=== PATIENT | male | born 1940 | race Hispanic/Latino ===

== ENCOUNTER 2017-04-06 20:01 | Inpatient (IN) | payer MEDICARE ==
[2017-04-06 20:01] VITALS: BMI 20.9
[2017-04-06] MEDS: Albuterol-Ipratrop 3 mg / 0.5 (3 ml) UD IH SCH ×3 (20:30→21:30)
[2017-04-06] MEDS ORDERED: Albuterol-Ipratrop 3 mg / 0.5 (3 ml) UD ONE (20:35)
[2017-04-06 21:27] LABS: BASO # 0.01 K/mm3 (0.0-2.0); BASO % 0.1 % (0.0-3.0); GRAN # 12.86 (1.4-6.5); GRAN % 89.2 % (50.0-68.0); HEMOGLOBIN 14.8 g/dL (14.0-18.0); LYMPH # 0.8 (1.2-3.4); LYMPH % 5.8 % (22.0-35.0); MEAN CELL VOLUME 96.7 fl (80.0-105.0); MEAN CORPUSCULAR HEMOGLOBIN 34.6 pg (25.0-35.0); MEAN CORPUSCULAR HGB CONC 35.7 g/dl (31.0-37.0); MONO # 0.7 (0.1-0.6); MONO % 4.9 % (1.0-6.0); RBC 4.28 10^6/uL (3.5-6.1); RED CELL DISTRIBUTION WIDTH 13.2 % (11.5-14.5); WHITE BLOOD COUNT 14.4 10^3/ul (4.5-11.0)
--- NOTE | 2017-04-06 21:27 | ED PDOC ---
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 Patient reports associated shortness of breath and wheezing. Patient reports no fever, chest pain, recent travel, or any other complaints. PMD: [facility] (Payton Garcia PA-C) Past Medical History - Provider Review Nursing Documentation Reviewed: Yes - Infectious Disease Hx of Infectious Diseases: None - Cardiac Hx Cardiac Disorders: Yes Hx Circulatory Problems: Yes Hx Hypertension: Yes Hx Peripheral Vascular Disease: Yes - Pulmonary Hx Respiratory Disorders: Yes - Neurological Hx Neurological Disorder: No - HEENT Hx HEENT Disorder: Yes Hx Deafness: Yes - Renal Hx Renal Disorder: No - Endocrine/Metabolic Hx Endocrine Disorders: No - Hematological/Oncological Hx Blood Disorders: No - Integumentary Hx Dermatological Disorder: Yes Hx Cellulitis: Yes (hx of) - Musculoskeletal/Rheumatological Hx Musculoskeletal Disorders: Yes Hx Falls: No (PT DENIES) Other/Comment: d/l amputee - Gastrointestinal Hx Gastrointestinal Disorders: Yes Other/Comment: colostomy - Genitourinary/Gynecological Hx Genitourinary Disorders: No - Psychiatric Hx Depression: No Hx Emotional Abuse: No Hx Physical Abuse: No Hx Substance Use: No - Surgical History Other/Comment: colostomy. b/l amputee due to "poor blood flow" as per pt - Anesthesia Hx Anesthesia: Yes Hx Anesthesia Reactions: No - Suicidal Assessment Feels Threatened In Home Enviroment: No Family/Social History - Physician Review Nursing Documentation Reviewed: Yes Family/Social History: Unknown Family HX Smoking Status: Current Some Days Smoker Hx Alcohol Use: Yes (6 PK COORS LIGHT DAILY) Hx Substance Use: No Hx Substance Use Treatment: No Allergies/Home Meds Allergies/Adverse Reactions: Allergies No Known Allergies Allergy (Verified 02/23/12 10:45) Home Medications: Home Meds Medication Instructions Recorded Confirmed Aspirin [Ecotrin] 81 mg PO DAILY 02/23/12 Atenolol 50 mg PO DAILY 02/23/12 Folic Acid 1 mg 02/23/12 02/23/12 Simvastatin 10 mg PO DAILY 02/23/12 02/23/12 Tramadol Hydrochloride [Tramadol] 50 mg PO 02/23/12 02/23/12 Review of Systems - Physician Review All systems were reviewed & negative as marked: Yes - Review of Systems Constitutional: Normal. absent: Fevers Eyes: Normal ENT: Normal Respiratory: SOB, Cough, Sputum, Wheezing Cardiovascular: Normal. absent: Chest Pain Gastrointestinal: Normal. absent: Abdominal Pain, Diarrhea, Nausea, Vomiting Genitourinary Male: Normal. absent: Dysuria, Frequency, Hematuria, Urinary Output Changes Musculoskeletal: Normal. absent: Back Pain, Neck Pain Skin: Normal. absent: Rash Neurological: Normal. absent: Headache, Dizziness Endocrine: Normal Hemo/Lymphatic: Normal Psychiatric: Normal Physical Exam Vital Signs Reviewed: Yes Temperature: Afebrile Blood Pressure: Normal Pulse: Regular Appearance: Positive for: Non-Toxic, Other (Speakign short sentences) Mental Status: Positive for: Alert and Oriented X 3 - Systems Exam Head: Present: Atraumatic, Normocephalic Pupils: Present: PERRL Extroacular Muscles: Present: EOMI Conjunctiva: Present: Normal Mouth: Present: Moist Mucous Membranes Neck: Present: Normal Range of Motion. No: Meningeal Signs, MIDLINE TENDERNESS , Paraspinal Tenderness Respiratory/Chest: Present: Respiratory Distress (Moderate respiratory distress) , Wheezes (Expiratory wheezes throughout), Other (Speaking short sentences) Abdomen: Present: Normal Bowel Sounds, Other (Colostomy). No: Tenderness, Distention, Peritoneal Signs Upper Extremity: Present: Normal Inspection. No: Cyanosis, Edema Lower Extremity: Present: NORMAL PULSES, Normal ROM, Other (Bilateral AKA). No : Edema Neurological: Present: GCS=15, CN II-XII Intact, Speech Normal Skin: Present: Warm, Dry, Normal Color. No: Rashes Psychiatric: Present: Alert, Oriented x 3, Normal Insight, Normal Concentration Vital Signs Temp Pulse Resp BP Pulse Ox 04/06/17 21:33 95 H 16 139/41 L 97 04/06/17 20:47 16 04/06/17 20:42 98.3 F 102 H 16 98/61 L 94 L Medical Decision Making ED Course and Treatment: 04/06/17 20:45 Impression: 77 year old male complaining of productive cough x3-4 days, shortness of breath , and wheezing. Plan: -- EKG -- Chest X-ray -- Labs, BNP, cardiac enzymes -- Rapid influenza -- Duoneb -- Solu-medrol -- Reassess and disposition Progress Notes: On re-evaluation, patient still c/o SOB, he is in mild respiratory distress, speaking in full sentences, breathing is labored, (+) audible expiratory wheezing. Lungs (+) b/l expiratory wheezing, (-) rhonchi, (-) crackles. CXR : (+) hyperinflation, (-) infiltrates, (-) effusion, as read by NANCY and ER MD. Labs : wbc 14.4, flu (-) Patient seen and evaluated by ER MD and PA, decision made to order ABG, and Mg 2 g IV. ABG reviewed : ph 7.33, pCO2 30, pO2 67. On second re-evaluation, patient is sitting up in bed, remains AAOx3 in mild respiratory distress. HR is still in the 120's and Pulse ox 96% on 2 L of NC. ABG shows evidence of metabolic acidosis. Ordered another dose of albuterol neb x1. Call placed to Dr. Cedeño, and case discussed, arrangements made to admit the patient with consult to Dr. Singh. Bridge orders placed. (Jose MARQUEZ,Payton Zhao) - Lab Interpretations Lab Results: 04/06/17 21:00 04/06/17 21:00 Lab Results 04/06/17 22:05: pCO2 30 L, pO2 67.0 L, HCO3 15.8 L, ABG pH 7.33 L, ABG Total CO2 16.7 L, ABG O2 Saturation 96.5, ABG O2 Content 16.6, ABG Base Excess -8.9 L , ABG Hemoglobin 12.6, ABG Carboxyhemoglobin 2.0 H, POC ABG HHb (Measured) 3.4, ABG Methemoglobin 1.3, ABG O2 Capacity 17.2, Hgb O2 Saturation 93.3 L, FiO2 28.0 04/06/17 21:00: Influenza Typ A,B (EIA) Negative for flu a/b 04/06/17 21:00: Sodium 133, Potassium 4.1, Chloride 97 L, Carbon Dioxide 22, Anion Gap 18, BUN 35 H, Creatinine 1.9 H, Est GFR ( Amer) 42, Est GFR ( Non-Af Amer) 35, Random Glucose 129 H, Calcium 9.8, Total Bilirubin 0.5, AST 52 , ALT 24, Alkaline Phosphatase 84, Lactate Dehydrogenase 425, Total Creatine Kinase 435 H, CK-MB (CK-2) 8.8 H, CK-MB (CK-2) % 2.0 L, Troponin I 0.04, NT-Pro- B Natriuret Pep 958 H, Total Protein 7.9, Albumin 4.3, Globulin 3.6, Albumin/ Globulin Ratio 1.2 04/06/17 21:00: WBC 14.4 H, RBC 4.28, Hgb 14.8, Hct 41.4 L, MCV 96.7, MCH 34.6, MCHC 35.7, RDW 13.2, Plt Count 208, MPV 9.0, Gran % 89.2 H, Lymph % (Auto) 5.8 L , Miller % (Auto) 4.9, Eos % (Auto) 0.0 L, Baso % (Auto) 0.1, Gran # 12.86 H, Lymph # 0.8 L, Miller # 0.7 H, Eos # 0.0, Baso # 0.01 - RAD Interpretation Radiology Orders: 04/06/17 20:48 CHEST PORTABLE [RAD] Stat - Medication Orders Current Medication Orders: Discontinued Medications Albuterol Sulfate (Albuterol 0.083% Inhal Vy (2.5 Mg/3 Ml) Ud) 2.5 mg IH STAT STA Stop: 04/06/17 22:29 Last Admin: 04/06/17 22:40 Dose: 2.5 mg Albuterol/Ipratropium (Duoneb 3 Mg/0.5 Mg (3 Ml) Ud) 3 ml IH Q15M STEPHANIE Stop: 04/06/17 21:31 Last Admin: 04/06/17 21:30 Dose: 3 ml Magnesium Sulfate 2 gm/ Sodium (Chloride) 104 mls @ 102 mls/hr IVPB ONCE ONE Stop: 04/06/17 22:50 Last Admin: 04/06/17 22:40 Dose: 102 mls/hr eMAR Start Stop Document 04/06/17 22:40 HI (Rec: 04/06/17 22:40 [place] [id number] Intravenous Solution Start Date 04/06/17 Start Time 22:40 Methylprednisolone (Solu-Medrol) 125 mg IVP STAT STA Stop: 04/06/17 20:48 Last Admin: 04/06/17 21:13 Dose: 125 mg IVP Administration Document 04/06/17 21:13 HI (Rec: 04/06/17 21:19 HI [id number]) Charges for Administration # of IVP Administrations 1 - PA / VOCATIONAL COUNSELOR / Resident Statement MD/DO has reviewed & agrees with the documentation as recorded. - Scribe Statement The provider has reviewed the documentation as recorded by the Scribe - Scribe Statement Christie Haque Provider Scribe Attestation: All medical record entries made by the Scribe were at my direction and personally dictated by me. I have reviewed the chart and agree that the record accurately reflects my personal performance of the history, physical exam, medical decision making, and the department course for this patient. I have also personally directed, reviewed, and agree with the discharge instructions and disposition. (Jose MARQUEZ,Payton Zhao) Disposition/Present on Arrival - Present on Arrival Any Indicators Present on Arrival: No History of DVT/PE: No History of Uncontrolled Diabetes: No Urinary Catheter: No History of Decub. Ulcer: No History Surgical Site Infection Following: None - Disposition Have Diagnosis and Disposition been Completed?: Yes Disposition Time: 22:30 Patient Plan: Telemetry - Disposition Diagnosis: COPD exacerbation Disposition: HOSPITALIZED Condition: FAIR Forms: [facility] (Greenlandic)
[2017-04-06 21:46] LABS: TROPONIN I 0.04 ng/mL
[2017-04-06] MEDS ORDERED: Magnesium Sulfate 2 GM in Sodium Chloride 0.9% 100 ML IVPB ONE (21:49)
[2017-04-06 22:11] LABS: ALBUMIN 4.3 g/dL (3.0-4.8); CALCIUM 9.8 mg/dL (8.4-10.5)
[2017-04-06 22:12] LABS: ALB/GLOB RATIO 1.2 (1.1-1.8)
[2017-04-06 22:13] LABS: CK-MB 8.8 ng/mL (0.0-3.6)
[2017-04-06 22:21] LABS: ARTERIAL BLOOD GAS HCO3 15.8 mmol/L (21-28); ARTERIAL BLOOD GAS HEMOGLOBIN 12.6 g/dL (11.7-17.4); ARTERIAL BLOOD GAS O2 CAPACITY 17.2 mL/dl (16-24); ARTERIAL BLOOD GAS O2 CONTENT 16.6 ML/dl (15-23); ARTERIAL BLOOD GAS O2 SAT 96.5 % (95-98); ARTERIAL BLOOD GAS PCO2 30 mm/Hg (35-45); ARTERIAL BLOOD GAS PH 7.33 (7.35-7.45); ARTERIAL BLOOD GAS TCO2 16.7 mmol.L (22-28)
[2017-04-06] MEDS: Albuterol 0.083% Inhal Sol (2.5 mg/3 mL) UD IH STA (22:40)
[2017-04-07] MEDS ORDERED: Albuterol 0.083% Inhal Sol (2.5 mg/3 mL) UD INH STA (01:21)
[2017-04-07] MEDS: Albuterol 0.083% Inhal Sol (2.5 mg/3 mL) UD IH STA (01:47)
[2017-04-07] MEDS: guaiFENesin 100 mg/5 ml Syrup UD PO PRN ×2 (02:05→10:26)
[2017-04-07 09:56] VITALS: O2SAT 96
[2017-04-07] MEDS ORDERED: Tiotropium 18 mcg Cap For Inhalation IH SCH (12:30)
[2017-04-07] MEDS ORDERED: MethylPREDNISolone 40 mg Vial IVP SCH (12:30)
[2017-04-07 13:27] VITALS: BP 136/81; PULSE 86; RESP 20; TEMP 96.7
[2017-04-07] MEDS ORDERED: Albuterol-Ipratrop 3 mg / 0.5 (3 ml) UD IH SCH (14:00)
--- NOTE | 2017-04-07 15:20 | RAD ---
HISTORY: Cough COMPARISON: No prior. FINDINGS: LUNGS: Hyperinflation with changes consistent with emphysema and or COPD. . Mild bibasilar atelectasis and or scarring however no focal consolidation. PLEURA: No significant pleural effusion identified, no pneumothorax apparent. CARDIOVASCULAR: Normal. OSSEOUS STRUCTURES: No significant abnormalities. VISUALIZED UPPER ABDOMEN: Normal. OTHER FINDINGS: None. IMPRESSION: Hyperinflation with changes consistent with emphysema and or COPD. . Mild bibasilar atelectasis and or scarring however no focal consolidation.
--- NOTE | 2017-04-07 15:39 | CARD ---
APPROVED REPORT EKG Measurement Heart [id number] [place] [id number] <Conclusion> Sinus tachycardia Possible Left atrial enlargement Incomplete right bundle branch block Septal infarct, age undetermined Abnormal ECG
[2017-04-07] MEDS ORDERED: Arformoterol 15 mcg/2 ml Inh Sol IH SCH (20:00)
--- NOTE | 2017-04-08 01:19 | CON ---
PULMONARY CONSULTATION DATE: 04/07/2017 REFERRING PHYSICIAN: Trish Hubbard MD REASON FOR CONSULTATION: Cough, shortness of breath, and COPD. HISTORY OF PRESENT ILLNESS: This is a 77-year-old gentleman with known history of bilateral AKA secondary to peripheral vascular disease, also has a history of colostomy, chronic obstructive lung disease, presented to Emergency Room with cough and shortness of breath, received steroids and bronchodilator and admitted for further workup. He is sitting in the bed, does not want to stay in the hospital, understand fully that it could be life threatening leaving the hospital including . He has wheezing and short of breath. No hemoptysis. No hematemesis. No hematuria. No diarrhea reported. PAST MEDICAL HISTORY: Chronic obstructive lung disease; history of peripheral vascular disease, requiring bilateral AKA; and history of colostomy. SOCIAL HISTORY: He is active smoker. Denying any alcohol use. FAMILY HISTORY: No significant cardiopulmonary disease reported. ALLERGIES: NONE KNOWN. MEDICATIONS: He is on aspirin 81 mg daily, Brovana inhaled twice a day, DuoNeb q.6 hours p.r.n., folic acid 1 mg daily, Lipitor 10 mg daily, Nicoderm patch daily, Pepcid 40 mg daily, Robitussin 100 mg q.4 hours p.r.n., Solu-Medrol 40 mg q.12 hours, Spiriva one capsule inhaled daily, Tenormin 50 mg daily, and Ultram 50 mg q.12 hours. REVIEW OF SYSTEMS: No headache. No rhinitis. Has some cough, shortness of breath, and wheezing. No nausea. No vomiting. No diarrhea. No dysuria. PHYSICAL EXAMINATION: GENERAL: Mild distress secondary to cough and shortness of breath. VITAL SIGNS: Temp is 98, heart rate is 86, respiratory rate is 20, blood pressure is 136/81, and pulse ox is 96% on nasal cannula. HEENT: Moist mucous membrane. No ulcer or thrush noted. NECK: Supple. No JVD. LUNGS: Has a bilateral wheezing. HEART: S1 and S2. ABDOMEN: Soft and nontender. No organomegaly. EXTREMITIES: No edema. Has bilateral AKA. NEUROLOGIC: Awake, alert, and follows simple command. LABORATORY DATA: Shows hemoglobin 14.8, hematocrit 41.4, WBC 14.4, and platelet count is 208. On admission blood gases show pH of 7.33, pCO2 of 30, O2 is 67 that was on 2 L nasal cannula. Sodium 133, potassium 4.1, chloride 97, bicarbonate 22, BUN 35, creatinine 1.9, glucose 129, calcium 9.8, total bilirubin 0.5, AST 52, ALT 24, and alkaline phos is 84. Troponin 0.05. ProBNP 958. Albumin is 4.3. Influenza A and B negative. Chest x-ray done in ER shows hyperinflated lung with changes consisted with emphysema and COPD, mild bibasilar atelectasis, and also has some scarring. ASSESSMENT AND PLAN: Exacerbation of chronic obstructive lung disease, hypertension, and history of peripheral vascular disease, requiring above-knee amputation. I had long discussion with the patient, try to convince him to stay at the hospital especially with chronic obstructive pulmonary disease exacerbation. He understand the risk of respiratory failure and and refuses to stay in the hospital. I spoke to nursing staff, gave him Solu-Medrol 125 mg IV one dose push, also giving him prescription for tapered dose of prednisone, rescue inhaler, ProAir, and doxycycline. The patient already has a Symbicort at home. I advised the patient to come back to ER if does not feel better or conditions does not improve. [facility], but will wait next day or so. The patient signing against medical advice, understanding fully that it is a risk for his life to leave the hospital. Donn Singh MD
--- NOTE | 2017-04-08 03:28 | HP ---
CHIEF COMPLAINT: Shortness of breath. HISTORY OF PRESENT ILLNESS: Mr. 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 The patient came to the Emergency Room complaining of progressive cough for 3 to 4 days. The patient reports associated shortness of breath and wheezing. The patient reports no fever, no chills. No travel history. No other complaints. Actually, the patient do not have primary care physician in the community, most of the time, he go to the [facility]. PAST MEDICAL HISTORY: As above: Coronary artery disease, hypertension, peripheral vascular disease, COPD, deafness, history of cellulitis, amputation of both legs, history of colostomy, and poor circulation. FAMILY HISTORY: Father and mother noncontributory. HABITS: Still smoking and heavy smoking. Alcohol yes, 6-pack Coors Light daily. Substance abuse, denied. ALLERGIES: THE PATIENT IS NOT ALLERGIC WITH ANY MEDICATIONS. HOME MEDICATIONS: Ecotrin, atenolol, folic acid, simvastatin, and tramadol. REVIEW OF SYSTEMS: The patient is seen and examined at the bedside. Still coughing. Asking for cough medications and wheezing. Still having shortness of breath with cough and bringing up sputum. No fever. No chills. No chest pain. No abdominal pain. No diarrhea. No nausea or vomiting. No dysuria, frequency, hematuria, or urinary output changes. No back pain or neck pain. Absent rashes. Has some headache and dizziness. PHYSICAL EXAMINATION: VITAL SIGNS: Temperature 98.3, pulse 102, respiratory rate 16, blood pressure 98/61, and pulse oximetry 94%. HEENT: Head is normocephalic and atraumatic. Eyes; PERRLA. Extraocular muscles are intact. Conjunctivae clear. Nose patent. Mucous membranes moist. NECK: Supple. No carotid bruit, JVP, or thyromegaly. LUNGS: Wheezing, especially expiratory wheezes throughout, speaking short sentences, it looks like in moderate respiratory distress. EXTREMITIES: Upper extremities, no edema, no cyanosis. Lower extremities, bilateral AKA. NEUROLOGICAL: The patient is awake and alert. Moving all 4 extremities. No focal deficits. ASSESSMENT AND PLAN: Mr. Ousmane Engel is a 77-year-old male with leukocytosis, renal insufficiency, hyperglycemia, history of chronic obstructive pulmonary disease came with chronic obstructive pulmonary disease exacerbation, actively heavily smoking, hypertension, severe peripheral vascular disease, deafness, history of colostomy. Readmitted the patient, started nebulize treatment and steroids. Pulmonary consult called. History of hypercholesterolemia, started on Lipitor. The patient is heavy smoker, started on nicotine patch 21 mg every 24 hours. Robitussin given. Gastrointestinal prophylaxis given with Pepcid. The patient want to go to home, urged to stay in the hospital and complete the treatment. We will follow up. Trish Hubbard MD
== END 2017-04-07 19:10 | disposition left against medical advice (07) | DRG 192 ==
LOC: ED 20:01 → ERH 22:50 → 3RSO 04-07 00:46
PROVIDERS: ADMIT Internal Medicine; ATTEND Internal Medicine
PROC: 3E0F7GC Introduction of Other Therapeutic Substance into Respiratory Tract, Via Natural or Artificial Opening (ICD-10-PCS; principal; 2017-04-07)
DX: J44.1 Chronic obstructive pulmonary disease with (acute) exacerbation (principal); Z89.611 Acquired absence of right leg above knee; Z89.612 Acquired absence of left leg above knee; D72.829 Elevated white blood cell count, unspecified; F17.210 Nicotine dependence, cigarettes, uncomplicated; I25.10 Atherosclerotic heart disease of native coronary artery without angina pectoris; E78.00 Pure hypercholesterolemia, unspecified; I10 Essential (primary) hypertension; I73.9 Peripheral vascular disease, unspecified; H91.90 Unspecified hearing loss, unspecified ear; R73.9 Hyperglycemia, unspecified; N28.9 Disorder of kidney and ureter, unspecified; Z93.3 Colostomy status; Z79.82 Long term (current) use of aspirin; Z79.899 Other long term (current) drug therapy

== ENCOUNTER 2017-04-09 17:48 | Inpatient (IN) | payer MEDICARE ==
[2017-04-09 18:02] VITALS: BMI 14.1
[2017-04-09] MEDS ORDERED: Sodium Chloride 0.9% 500 ML IV STA (18:33)
--- NOTE | 2017-04-09 18:47 | ED PDOC ---
Arrival/HPI - General Historian: Patient, EMS - History of Present Illness Time/Duration: < week Symptom Onset: Gradual Symptom Course: Unchanged Severity Level: Severe Context: Home - General Chief Complaint: Shortness Of Breath Time Seen by Provider: 04/09/17 18:18 - History of Present Illness Narrative History of Present Illness (Text): 04/09/17 18:33 pt p/w + few days onset of worsening sob, at rest; pt was recently treated and admitted to the hospital for acute copd exacerbation but left prematurely/AMA because he wanted to spend the holidays at home; pt states he has not been feeling improved since leaving the hospital against medical advice; pt with decr appetite, + worsening weakness/fatigue, + voice changes, + coughing ( intermittently productive, non-bloody); pt states no chest pain, + feeling chills/? tactile fever, no palpitations, no abd pain, no n/v, no urinary/bowel changes, no fall/trauma/travel, ? sick contact pt denied other complaints pt is here for further eval. PCP: Dr Lucy Hubbard ([facility]) Past Medical History - Provider Review Nursing Documentation Reviewed: Yes - Travel History Have you recently traveled outside [place] w/in the past 3 mons?: No - Infectious Disease Hx of Infectious Diseases: None - Tetanus Immunization Tetanus Immunization: Unknown - Cardiac Hx Hypertension: Yes Hx Peripheral Vascular Disease: Yes - Pulmonary Hx Respiratory Disorders: Yes - Neurological Hx Neurological Disorder: No - HEENT Hx HEENT Disorder: Yes Hx Deafness: Yes - Renal Hx Renal Disorder: No - Endocrine/Metabolic Hx Endocrine Disorders: No - Hematological/Oncological Hx Blood Disorders: No - Integumentary Hx Dermatological Disorder: Yes (Cellulitis) - Musculoskeletal/Rheumatological Hx Falls: No - Gastrointestinal Hx Colostomy: Yes - Genitourinary/Gynecological Hx Genitourinary Disorders: No - Psychiatric Hx Psychophysiologic Disorder: Yes (Drinks 6pk beer daily, Heavy smoker) Hx Substance Use: No - Surgical History Other/Comment: colostomy. b/l amputee due to "poor blood flow" as per pt - Anesthesia Hx Anesthesia: Yes Hx Anesthesia Reactions: No Hx Malignant Hyperthermia: No - Suicidal Assessment Feels Threatened In Home Enviroment: No Family/Social History - Physician Review Nursing Documentation Reviewed: Yes Family/Social History: Unknown Family HX Smoking Status: Heavy Smoker > 10 Cigarettes Daily (pt smokes 1-1.5 packs per day) Hx Alcohol Use: Yes Hx Substance Use: No Hx Substance Use Treatment: No Allergies/Home Meds Allergies/Adverse Reactions: Allergies No Known Allergies Allergy (Verified 04/09/17 18:08) Home Medications: Home Meds Medication Instructions Recorded Confirmed Aspirin [Ecotrin] 81 mg PO DAILY 02/23/12 Atenolol 50 mg PO DAILY 02/23/12 Folic Acid 1 mg 02/23/12 02/23/12 Simvastatin 10 mg PO DAILY 02/23/12 02/23/12 Tramadol Hydrochloride [Tramadol] 50 mg PO 02/23/12 02/23/12 Review of Systems - Review of Systems Constitutional: Fatigue, Weight Change, Fevers Eyes: Normal ENT: Normal Respiratory: SOB, Cough, Wheezing Cardiovascular: Chest Pain. absent: Palpitations Gastrointestinal: Normal Genitourinary Male: Normal Musculoskeletal: Normal Skin: Normal Neurological: Normal Endocrine: Normal Hemo/Lymphatic: Normal Psychiatric: Normal Physical Exam Vital Signs Reviewed: Yes (elevated HR) Temperature: Afebrile Blood Pressure: Normal Pulse: Tachycardic Respiratory Rate: Normal Appearance: Positive for: Well-Appearing, Non-Toxic, Other (uncomfortable, mild distress due to sob, alert/awake, GCS = 15, oriented x 3; cooperative) Pain Distress: Mild Mental Status: Positive for: Alert and Oriented X 3 - Systems Exam Head: Present: Atraumatic, Normocephalic Pupils: Present: PERRL, Other (no nystagmus, no photophobia, sclera anicteric) Extroacular Muscles: Present: EOMI Conjunctiva: Present: Normal Ears: Present: Normal Mouth: Present: Dry, Other (fair dentitions, no drooling/stridor, no exudate/ lesions, uvula/tongue are midline) Pharnyx: Present: Normal Nose (Internal): Present: Normal Inspection Neck: Present: Normal Range of Motion, Trachea Midline. No: MIDLINE TENDERNESS , JVD Respiratory/Chest: Present: Wheezes, Other (decr Breath sounds bilaterally, right >> left; + wheezing/rhonchi/rales noted to right lung, mild tachypenia, no accessory muscle use noted). No: Respiratory Distress, Accessory Muscle Use Cardiovascular: Present: Normal S1, S2, Tachycardic. No: Murmurs Abdomen: Present: Normal Bowel Sounds, Other (well noursihed male, no focal tenderness, no masses/rebound/guarding/rigidity; + mid/right abd colostomy bag ( with stool content, non-bloody), no covington's sign, no mcburney's point tenderness). No: Tenderness, Distention, Peritoneal Signs Back: Present: Normal Inspection Upper Extremity: Present: Normal Inspection, NORMAL PULSES, Neurovascularly Intact, Capillary Refill < 2s. No: Cyanosis, Edema Lower Extremity: Present: Other (b/l lower ext AKA). No: Edema Neurological: Present: GCS=15, CN II-XII Intact, Speech Normal Skin: Present: Warm, Dry, Normal Color, Other (cap refill ~ 1 sec, no ulcerations, no petechiae). No: Rashes Psychiatric: Present: Alert, Oriented x 3, Normal Insight, Normal Concentration Vital Signs Temp Pulse Resp BP Pulse Ox 04/09/17 18:12 97.8 F 120 H 24 138/70 98 Medical Decision Making Re-evaluation Time: 18:54 Reassessment Condition: Improving,but remains with symptoms - Critical Care Critical Care Minutes: 45 minutes - Lab Interpretations I have reviewed the lab results: Yes Interpretation: Abnormal lab values - RAD Interpretation Sed Special Education Teacher: Radiologist - EKG Interpretation Interpreted by ED Physician: Yes Type: 12 lead EKG Comparison: Similar to previous EKG ED Course and Treatment: 04/09/17 18:50 Impression: SOB/acute COPD exacerbation; r/o PNA/bronchitis i have consider all the differential diagnosis regarding pt's chief medical complaints/clinical findings, including but are not limited to: SOB/copd exacerbation; r/o PNA/bronchitis; unlikely cardiac will r/o, unlikely PE A/P: sob/acute COPD/r/o infectious, unlikely cardiac - labs - iv - xray - r/o acs - observe - supportive care 04/09/17 19:46 Dr Hubbard is at bedside, evaluated patient, agrees with ED mgt/txt/dx; agrees with admission; would like Dr Singh to be consulted pt is made aware of his medical results agrees with admission 04/09/17 19:57 pt is currently chest pain free (Karl Sparrow) - Critical Care Narrative Critical Care (Text): 04/09/17 18:54 critical care time: 45min, excluding procedure time, excluding time teaching residents/students/mid-level providers; including initial eval/diagnosis, diagnostic interpretation, re-eval, consultations, final disposition (Karl Sparrow) 04/10/17 00:07 asked to see patient for SOB and cough. Lungs with diffuse exp wheeze and decreased breath sounds. (Dalton Mondragon) - Lab Interpretations Lab Results: elevated WBCs (Karl Sparrow) - RAD Interpretation Radiology Orders: 04/09/17 18:23 CHEST PORTABLE [RAD] Stat - EKG Interpretation EKG Interpretation (Text): 04/09/17 18:54 Sinus tach at 130 bpm, LAD, no ectopy, incomplete RBBB, non-specific st-t changes, ABNL EKG; unchanged compare with old ekg 03/201704/09/17 18:57 (Karl Sparrow) - Medication Orders Current Medication Orders: Albuterol/Ipratropium (Duoneb 3 Mg/0.5 Mg (3 Ml) Ud) 3 ml IH [id number] [facility] Aspirin (Ecotrin) 81 mg PO DAILY [facility] Atenolol (Tenormin) 50 mg PO DAILY [facility] Atorvastatin Calcium (Lipitor) 10 mg PO DIN [facility] Famotidine (Pepcid) 40 mg PO HS [facility] Folic Acid (Folic Acid) 1 mg PO DAILY [facility] Methylprednisolone (Solu-Medrol) 40 mg IVP Q12 [facility] Nicotine (Nicoderm Cq) 1 patch TD DAILY [facility] Tramadol HCl (Ultram) 50 mg PO BID [facility] Discontinued Medications Albuterol/Ipratropium (Duoneb 3 Mg/0.5 Mg (3 Ml) Ud) 3 ml IH Q15M [facility] Stop: 04/09/17 19:01 Last Admin: 04/09/17 19:45 Dose: 3 ml Albuterol/Ipratropium (Duoneb 3 Mg/0.5 Mg (3 Ml) Ud) 3 ml IH STAT STA Stop: 04/10/17 00:05 Aspirin (Aspirin) 325 mg PO STAT STA Stop: 04/09/17 18:25 Last Admin: 04/09/17 19:34 Dose: 325 mg Sodium Chloride (Sodium Chloride 0.9%) 500 mls @ 999 mls/hr IV .Q31M STA Stop: 04/09/17 19:03 Last Admin: 04/09/17 19:35 Dose: 999 mls/hr eMAR Start Stop Document 04/09/17 19:35 OCS (Rec: 04/09/17 19:35 [place] [facility] [id number][place] Intravenous Solution Start Date 04/09/17 Start Time 19:35 End Date 04/09/17 End time 20:05 Total Infusion Time 30 Methylprednisolone (Solu-Medrol) 125 mg IVP STAT STA Stop: 04/09/17 18:24 Last Admin: 04/09/17 19:34 Dose: 125 mg IVP Administration Document 04/09/17 19:34 OCS (Rec: 04/09/17 19:34 [facility]CS [facility] [id number]) Charges for Administration # of IVP Administrations 1 Disposition/Present on Arrival - Present on Arrival Any Indicators Present on Arrival: No History of DVT/PE: No History of Uncontrolled Diabetes: No Urinary Catheter: No History of Decub. Ulcer: No History Surgical Site Infection Following: None - Disposition Have Diagnosis and Disposition been Completed?: Yes Disposition Time: 18:56 Patient Plan: Admission, Telemetry - Disposition Diagnosis: COPD exacerbation, Shortness of breath, Bronchitis, Weakness Disposition: HOSPITALIZED Patient Problems: Current Active Problems Problem Status Onset COPD exacerbation Acute Shortness of breath Acute Bronchitis Acute Weakness Acute Condition: FAIR
[2017-04-09] MEDS: Albuterol-Ipratrop 3 mg / 0.5 (3 ml) UD IH SCH ×3 (19:15→19:45)
[2017-04-09 19:41] LABS: BASO # 0.02 K/mm3 (0.0-2.0); BASO % 0.1 % (0.0-3.0); GRAN # 17.49 (1.4-6.5); GRAN % 92.8 % (50.0-68.0); HEMOGLOBIN 14.4 g/dL (14.0-18.0); LYMPH # 0.4 (1.2-3.4); MEAN CELL VOLUME 96.7 fl (80.0-105.0); MEAN CORPUSCULAR HGB CONC 35.2 g/dl (31.0-37.0); MEAN PLATELET VOLUME 9.1 fl (7.0-11.0); MONO % 5.1 % (1.0-6.0); PLATELET COUNT 256 10^3/uL (120.0-450.0); RBC 4.23 10^6/uL (3.5-6.1); RED CELL DISTRIBUTION WIDTH 13.8 % (11.5-14.5); WHITE BLOOD COUNT 18.9 10^3/ul (4.5-11.0)
[2017-04-09 19:49] LABS: VENOUS BLOOD GAS BASE EXCESS -0.4 mmol/L (0.0-2.0); VENOUS BLOOD GAS PO2 32 mm/Hg (30-55); VENOUS BLOOD PH 7.31 (7.32-7.43)
[2017-04-09 20:01] LABS: B-TYPE NATRIURETIC PEPTIDE 3830 pg/mL (0-450); TROPONIN I 0.06 ng/mL
[2017-04-09 20:03] LABS: INR 1.1 (0.93-1.08); PARTIAL THROMBOPLASTIN TIME 31.2 Seconds (25.1-36.5)
[2017-04-09 20:08] LABS: ALB/GLOB RATIO 1.2 (1.1-1.8); ALT/SGPT 71 U/L (7-56); AST/SGOT 93 U/L (17-59); BLOOD UREA NITROGEN 17 mg/dL (7-21); CALCIUM 9.6 mg/dL (8.4-10.5); GFR AFRICAN-AMERICAN > 60; GFR NON-AFRICAN AMERICAN > 60
[2017-04-09 20:22] LABS: CK MB% 2.6 % (2.5-3.0)
[2017-04-09 20:53] LABS: URINE BILIRUBIN NEGATIVE (NEGATIVE); URINE BLOOD SMALL (NEGATIVE); URINE GLUCOSE (UA) NEGATIVE (NEGATIVE); URINE LEUKOCYTE ESTERASE SMALL Leu/uL (NEGATIVE); URINE NITRATE POSITIVE (NEGATIVE); URINE PROTEIN 30 mg/dL (<30 mg/dL); URINE UROBILINOGEN 0.2 E.U./dL (<1 E.U./dL)
[2017-04-09 20:55] LABS: URINE APPEARANCE CLOUDY (CLEAR); URINE COLOR YELLOW (YELLOW)
[2017-04-09 21:02] LABS: URINE BACTERIA LARGE (NEG); URINE WBC 25 - 30 /hpf (0-6)
[2017-04-09 21:36] LABS: BAND 4 % (0-2); LYMPHOCYTE 8 % (22.0-35.0); MONOCYTE 4 % (1.0-6.0); NEUTROPHIL 84 % (50.0-70.0)
[2017-04-10] MEDS ORDERED: Albuterol-Ipratrop 3 mg / 0.5 (3 ml) UD IH STA (00:04)
--- NOTE | 2017-04-10 07:12 | RAD ---
HISTORY: sob/weakenss/wheezing COMPARISON: Chest radiographs 04/06/2017. FINDINGS: LUNGS: Extensive COPD again appreciated. No definite acute infiltrate bilaterally. PLEURA: No significant pleural effusion identified, no pneumothorax apparent. CARDIOVASCULAR: Normal. OSSEOUS STRUCTURES: Old healed rib fractures again seen the left ribs somewhat better define by differences in technique currently. VISUALIZED UPPER ABDOMEN: Normal. OTHER FINDINGS: None. IMPRESSION: COPD. No acute interval cardiopulmonary disease appreciable.
[2017-04-10] MEDS: Albuterol-Ipratrop 3 mg / 0.5 (3 ml) UD IH SCH ×3 (07:37→21:53)
[2017-04-10] MEDS: Albuterol-Ipratrop 3 mg / 0.5 (3 ml) UD IH PRN ×2 (09:34→12:10)
--- NOTE | 2017-04-10 09:56 | RAD ---
HISTORY: acute sob/ follow up COMPARISON: 04/09/2017 FINDINGS: LUNGS: No active pulmonary disease. Prominent interstitial markings unchanged PLEURA: No significant pleural effusion identified, no pneumothorax apparent. CARDIOVASCULAR: Normal. OSSEOUS STRUCTURES: No significant abnormalities. VISUALIZED UPPER ABDOMEN: Normal. OTHER FINDINGS: None. IMPRESSION: No active disease.
[2017-04-10] MEDS ORDERED: MethylPREDNISolone 40 mg Vial IVP SCH (10:00)
--- NOTE | 2017-04-10 11:06 | HP ---
CHIEF COMPLAINT: Shortness of breath. HISTORY OF PRESENT ILLNESS: Mr. 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 Due to holidays, he signed against medical advice, he left home, now came back with worsening shortness of breath even at rest, came with acute exacerbation of COPD. According to the patient, he is not feeling well since he left the hospital against medical advice. Appetite decreased, worsening weakness, fatigue, voice changes. Coughing, intermittent, productive, and nonbloody. The patient had chest pain, feeling chills. No nausea, vomiting, diarrhea. No hematemesis or hematochezia. No history of travel. No sick contact. PAST MEDICAL HISTORY: Hypertension, deafness, history of colostomy, history of heavy drinking and smoking, drinks 6 packs of beer every day, bilateral amputation due to poor circulation as per patient. FAMILY HISTORY: Father and mother noncontributory. HABITS: Heavy smoking, more than 10 cigarettes per day. Smokes 1 to 1.5 packs per day. Alcohol, yes. Substance abuse, no, as per patient. ALLERGIES: THE PATIENT IS NOT ALLERGIC TO ANY MEDICATION. HOME MEDICATIONS: Aspirin, Tylenol, folic acid, simvastatin, Tramadol. REVIEW OF SYSTEMS: The patient was examined in the bedside in the emergency room, feeling fatigued with changing of fevers, shortness of breath, and coughing and wheezing. No palpitation but feeling chest pain. No nausea, vomiting, diarrhea, hematuria, hematochezia. No headache, no dizziness. PHYSICAL EXAMINATION: VITAL SIGNS: Temperature 97.8, pulse 120, respiratory rate 24, blood pressure 138/70, pulse oximetry 98. HEENT: Head normocephalic, atraumatic. Eyes: PERRLA. Extraocular muscles intact. Conjunctivae clear. Nose patent. Mucous membranes moist. NECK: Supple. No carotid bruits. No JVD or thyromegaly. CHEST: Bilaterally symmetrical. LUNGS: Wheezing bilaterally, decreased breath sounds, right more than the left. HEART: S1 and S2 positive. ABDOMEN: Soft. Bowel sounds positive. No organomegaly. EXTREMITIES: Normal inspection, normal pulses. Has amputation of both the legs, lower extremities. NEUROLOGIC: Awake and alert. Moving all four extremities. No focal deficits. LABS: White blood cells 18.9, hemoglobin 14.4, hematocrit 40.9. Platelets 256. Sodium 139, potassium 4.2, BUN 17, creatinine 1.0. AST 93, ALT 41, BNP 3830. ASSESSMENT AND PLAN: Mr. Toro Romeo is a 77-year-old male with abnormal liver function tests, congestive heart failure, leukocytosis, proteinuria, ketonuria, hematuria, urinary tract infection, influenza type A and B is negative, came with exacerbation of chronic obstructive pulmonary disease, asthma, feeling fatigued and tired. No appetite. Amputation of both the legs due to poor circulation, hypertension, deafness, history of colostomy, history of heavy smoking and heavy drinking. We admitted the patient to consult with Dr. Singh, Outboard Technician Critical Care. Medicines ordered. I will order antibiotics because of leukocytosis. Labs, we will follow up. Trish Hubbard MD MTDJose A
--- NOTE | 2017-04-10 12:51 | CP.PCM.PN ---
<Lo Molina - Last Filed: 04/11/17 01:16> Subjective - Date & Time of Evaluation Date of Evaluation: 04/10/17 Time of Evaluation: 11:00 - Subjective Subjective: 77 yr male w/ history of heavy smoking, emphysema, COPD, 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 Pt seen 04/10/17 in bed complaining of cough. He denies headaches , n/v, chills, diarrhea, constipation, urinary changes. No distress noted. Objective - Vital Signs/Intake and Output Vital Signs (last 24 hours): Temp Pulse Resp BP Pulse Ox 97.0 F L 104 H 19 127/70 96 04/10/17 06:00 04/10/17 10:55 04/10/17 06:00 04/10/17 10:55 04/10/17 06:00 - Medications Medications: Current Medications Albuterol/Ipratropium (Duoneb 3 Mg/0.5 Mg (3 Ml) Ud) 3 ml IH [id number] [facility] Last Admin: 04/10/17 07:37 Dose: 3 ml Albuterol/Ipratropium (Duoneb 3 Mg/0.5 Mg (3 Ml) Ud) 3 ml IH Q2H PRN PRN Reason: Shortness of Breath Last Admin: 04/10/17 12:10 Dose: 3 ml Alprazolam (Xanax) 0.25 mg PO BID PRN PRN Reason: Anxiety Stop: 04/17/17 12:12 Arformoterol Tartrate (Brovana) 15 mcg IH [id number] [facility] Aspirin (Ecotrin) 81 mg PO DAILY [facility] Last Admin: 04/10/17 10:55 Dose: 81 mg Atenolol (Tenormin) 50 mg PO DAILY [facility] Last Admin: 04/10/17 10:55 Dose: 50 mg Atorvastatin Calcium (Lipitor) 10 mg PO DIN [facility] Famotidine (Pepcid) 40 mg PO HS [facility] Folic Acid (Folic Acid) 1 mg PO DAILY [facility] Last Admin: 04/10/17 10:54 Dose: 1 mg Methylprednisolone (Solu-Medrol) 40 mg IVP Q12 [facility] Last Admin: 04/10/17 09:35 Dose: 40 mg Nicotine (Nicoderm Cq) 1 patch TD DAILY [facility] Last Admin: 04/10/17 10:56 Dose: 1 patch Tramadol HCl (Ultram) 50 mg PO BID [facility] Last Admin: 04/10/17 10:56 Dose: Not Given - Labs Labs: 04/09/17 19:15 04/09/17 19:15 PT 12.0 SECONDS (9.4-12.5) 04/09/17 19:15 INR 1.10 (0.93-1.08) H 04/09/17 19:15 APTT 31.2 Seconds (25.1-36.5) 04/09/17 19:15 - Constitutional Appears: Chronically Ill - Head Exam Head Exam: ATRAUMATIC, NORMAL INSPECTION, NORMOCEPHALIC - Eye Exam Eye Exam: EOMI, Normal appearance, PERRL - ENT Exam ENT Exam: Mucous Membranes Dry, Normal Exam - Neck Exam Neck Exam: Full ROM, Normal Inspection. absent: Lymphadenopathy - Respiratory Exam Respiratory Exam: Decreased Breath Sounds, Rhonchi - Cardiovascular Exam Cardiovascular Exam: REGULAR RHYTHM, +S1, +S2. absent: Murmur - GI/Abdominal Exam GI & Abdominal Exam: Soft, Normal Bowel Sounds. absent: Tenderness Additional comments: LLQ colostomy w. formed brown stool. - Rectal Exam Rectal Exam: NORMAL INSPECTION - Extremities Exam Additional comments: bilateral AKA - Neurological Exam Neurological Exam: Alert, Awake, CN II-XII Intact, Oriented x3 - Psychiatric Exam Psychiatric exam: Normal Affect, Normal Mood - Skin Skin Exam: Dry, Intact, Normal Color, Warm Assessment and Plan (1) Abnormal liver function test Status: Acute (2) Congestive heart failure Status: Acute (3) Leukocytosis Status: Acute (4) Proteinuria Status: Acute (5) Ketonuria Status: Acute (6) Hematuria Status: Acute (7) UTI (urinary tract infection) Status: Acute (8) COPD exacerbation Status: Acute (9) Shortness of breath Status: Acute - Assessment and Plan (Free Text) Plan: Urine cultures pending to treat UTI. PT onboard. GI/VTE prophylaxis Consults: Pulmonolgist = Dr. Samantha florian, echo, nicoderm patch Reviewed: CXR = WNL CXR = COPD. No acute interval cardiopulmonary disease ECG = ABNORMAL Sinus tachycardia, L axis deviation, nonspecific ST abnormality <Trish Hubbard - Last Filed: 04/11/17 09:42> Objective - Vital Signs/Intake and Output Vital Signs (last 24 hours): Temp Pulse Resp BP Pulse Ox 97.8 F 66 22 139/85 97 04/11/17 06:00 04/11/17 06:00 04/11/17 06:00 04/11/17 06:00 04/11/17 06:00 Intake and Output: 04/11/17 04/11/17 06:59 18:59 Intake Total 360 Output Total 1250 Balance -890 - Medications Medications: Current Medications Albuterol/Ipratropium (Duoneb 3 Mg/0.5 Mg (3 Ml) Ud) 3 ml IH [id number] [facility] Last Admin: 04/11/17 07:34 Dose: 3 ml Albuterol/Ipratropium (Duoneb 3 Mg/0.5 Mg (3 Ml) Ud) 3 ml IH Q2H PRN PRN Reason: Shortness of Breath Last Admin: 04/10/17 12:10 Dose: 3 ml Alprazolam (Xanax) 0.25 mg PO BID PRN PRN Reason: Anxiety Stop: 04/17/17 12:12 Arformoterol Tartrate (Brovana) 15 mcg IH [id number] [facility] Last Admin: 04/11/17 07:34 Dose: 15 mcg Aspirin (Ecotrin) 81 mg PO DAILY [facility] Last Admin: 04/10/17 10:55 Dose: 81 mg Atenolol (Tenormin) 50 mg PO DAILY [facility] Last Admin: 04/10/17 10:55 Dose: 50 mg Atorvastatin Calcium (Lipitor) 10 mg PO DIN [facility] Last Admin: 04/10/17 18:33 Dose: 10 mg Famotidine (Pepcid) 40 mg PO HS [facility] Last Admin: 04/10/17 23:21 Dose: 40 mg Folic Acid (Folic Acid) 1 mg PO DAILY [facility] Last Admin: 04/10/17 10:54 Dose: 1 mg Methylprednisolone (Solu-Medrol) 40 mg IVP Q8 [facility] Last Admin: 04/11/17 06:01 Dose: 40 mg Nicotine (Nicoderm Cq) 1 patch TD DAILY [facility] Last Admin: 04/10/17 10:56 Dose: 1 patch Tramadol HCl (Ultram) 50 mg PO BID [facility] Last Admin: 04/10/17 18:33 Dose: 50 mg - Labs Labs: 04/09/17 19:15 04/09/17 19:15 PT 12.0 SECONDS (9.4-12.5) 04/09/17 19:15 INR 1.10 (0.93-1.08) H 04/09/17 19:15 APTT 31.2 Seconds (25.1-36.5) 04/09/17 19:15 Assessment and Plan - Assessment and Plan (Free Text) Plan: 77 yr male w/ history of heavy smoking, emphysema, COPD, 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 Pt seen 04/10/17 in bed complaining of cough. He denies headaches , n/v, chills, diarrhea, constipation, urinary changes. No distress noted. pt is seen and examined at bed side , agreed all above , cont. neb, pul. is on the case , d/d with paper inserter and staff , cont. same treatment , will f/u
--- NOTE | 2017-04-10 15:11 | CARD ---
APPROVED REPORT EKG Measurement Heart [id number] <Conclusion> Sinus tachycardia Left axis deviation Nonspecific ST abnormality Abnormal ECG
[2017-04-10] MEDS: Arformoterol 15 mcg/2 ml Inh Sol IH SCH (21:52)
--- NOTE | 2017-04-10 23:56 | CON ---
DATE: 04/10/2017 PULMONARY CONSULT REFERRING PHYSICIAN: Dr. Hubbard REASON FOR CONSULT: Exacerbation of chronic obstructive lung disease. HISTORY OF PRESENT ILLNESS: This is a 77 years old gentleman who just signed himself out few days ago with acute exacerbation of COPD, now comes back with similar symptoms of cough and shortness of breath. At the time of discharge, he was given IV Solu-Medrol, also prescription of p.o. steroids and antibiotics were given which he never got it. He has a history of AKA secondary to peripheral vascular disease, also history of colostomy, chronic obstructive lung disease. Since admission, feels little better but still cough, shortness of breath, wheezing. No nausea, no vomiting, no diarrhea. PAST MEDICAL HISTORY: Chronic obstructive lung disease, peripheral vascular disease, history of bilateral AKA, history of colostomy. SOCIAL HISTORY: He is active smoker. Denied any alcohol. FAMILY HISTORY: No significant cardiopulmonary disease reported. ALLERGIES: NONE KNOWN. MEDICATONS: He is on Brovana inhaled twice a day, DuoNeb q 6 hours and also DuoNeb q 12 hours p.r.n., Ecotrin 81 mg daily, folic acid 1 mg daily, Lipitor 10 mg daily, Nicoderm patch daily, Pepcid 40 mg daily, Solu-Medrol 20 mg q 12 hours, Tenormin 50 mg daily, Ultram 50 mg twice a day, Xanax 0.25 mg twice a day p.r.n. REVIEW OF SYSTEMS: No headache, no rhinitis, has cough, shortness of breath, wheezing. No nausea, no vomiting, no diarrhea. No leg pain or leg swelling. PHYSICAL EXAMINATION GENERAL: Sitting up in the bed, mild distress secondary to cough and shortness of breath. VITAL SIGNS: Temperature is 98, heart rate is 92, respiratory rate is 20, blood pressure is 143/93, pulse ox is 96% on nasal cannula. HEENT: Moist mucous membranes. No ulcer or thrush noted.. NECK: Supple. No JVD. LUNGS: Has bilateral diffuse wheezing. HEART: S1 and S2. ABDOMEN: Soft and nontender. No organomegaly. EXTREMITIES: Has bilateral AKA, stump site looks good. NEUROLOGIC: Awake, alert, and follows simple commands. LABORATORY DATA: Shows hemoglobin 14.4, hematocrit 40.9, WBC 18.9, platelet is 256. INR is 1.10. PTT is 31. Has a VBG done yesterday shows pH 7.31, pCO2 of 50, pO2 is 28. Sodium is 139, potassium is 4.2, chloride is 103, bicarbonate is 27, BUN is 17, creatinine is 1.0, glucose is 107, calcium is 9.6, total bilirubin is 0.4, AST is 93, ALT is 71, alkaline phosphatase is 85, LDH is 697, CPK-MB is 14.0, troponin is 0.06, proBNP is 3830. Influenza A and B have been negative. Chest x-ray shows no active pulmonary disease. IMPRESSION AND PLAN: Chronic obstructive lung disease, active smoker, hypertension, history of peripheral vascular disease, history of [id number]. Agree with the present treatment. Increase Solu-Medrol to 40 q. 8 hours. We will do echocardiogram, assess LV function, gastric prophylaxis, place Nicoderm patch. Thank you and we will follow with you. Donn Singh MD
[2017-04-11] MEDS: Albuterol-Ipratrop 3 mg / 0.5 (3 ml) UD IH SCH ×4 (04:25→22:32)
[2017-04-11] MEDS: MethylPREDNISolone 40 mg Vial IVP SCH ×3 (06:01→21:30)
[2017-04-11] MEDS: Arformoterol 15 mcg/2 ml Inh Sol IH SCH ×2 (07:34→22:31)
[2017-04-11 10:05] LABS: HEMOGLOBIN 13.9 g/dL (14.0-18.0); MEAN CELL VOLUME 97.5 fl (80.0-105.0); MEAN CORPUSCULAR HEMOGLOBIN 34.1 pg (25.0-35.0); MEAN CORPUSCULAR HGB CONC 34.9 g/dl (31.0-37.0); RBC 4.08 10^6/uL (3.5-6.1); RED CELL DISTRIBUTION WIDTH 14.1 % (11.5-14.5); WHITE BLOOD COUNT 19.7 10^3/ul (4.5-11.0)
--- NOTE | 2017-04-11 18:23 | PN ---
DATE: 04/11/2017 PULMONARY PROGRESS NOTE REFERRING PHYSICIAN: Dr. Hubbard. SUBJECTIVE: The patient is lying in the bed, feels a little bit better. Still have a cough, wheezing. No nausea. No vomiting. No diarrhea. OBJECTIVE: GENERAL: In no acute distress. VITAL SIGNS: Temperature is 98, heart rate is 66, respiratory rate is 20, blood pressure is 139/85, and pulse ox is 97% on 3 L nasal cannula. HEENT: Moist mucous membrane. Crowded airway. NECK: Supple. No JVD. LUNGS: Have a better airflow. Decreased wheezing and rhonchi. HEART: S1 and S2. ABDOMEN: Soft and nontender. No organomegaly. EXTREMITIES: There is no edema. Has bilateral AKA. NEUROLOGIC: Awake and alert, and follow simple commands. MEDICATIONS: He is on Brovana inhaled twice a day, DuoNeb q. 6 hours p.r.n., Ecotrin 81 mg daily, folic acid 1 mg daily, Lipitor 10 mg daily, Nicoderm patch daily, Pepcid 40 mg at bedtime, Solu-Medrol 40 mg q. 8 hours, Tenormin 50 mg daily, Ultram 50 mg twice a day, and Xanax 0.25 mg twice a day. LABORATORY DATA: Shows hemoglobin 13.9, hematocrit 39.8, WBC 19.7, platelet is 329. Sodium 139, two days ago. IMPRESSION AND PLAN: Chronic obstructive lung disease, active smoker, hypertension, peripheral vascular disease, status post bilateral lmkku-uzef-poymrknjzs. We will continue IV inhaled bronchodilator. Continue beta-lizeth. Awaiting for echocardiogram report. Has a high proBNP. Thank you and we will follow with you. Donn Singh MD
--- NOTE | 2017-04-11 18:29 | PN ---
DATE: SUBJECTIVE: This is a 77-year-old male. The patient is seen and examined at the bedside. Coughing, still has shortness of breath and wheezing, but better. No nausea, vomiting, or diarrhea. No hematuria or hematochezia. No headache. No dizziness. No fever. No chills. PHYSICAL EXAMINATION: VITAL SIGNS: Temperature 97.8, pulse 56, blood pressure 139/85, respiratory rate 22. HEENT: Head normocephalic and atraumatic. Eyes; PERRLA. Extraocular muscles intact. Conjunctivae clear. Nose patent. Mucous membranes moist. NECK: Supple. No carotid bruits. No JVD or thyromegaly. CHEST: Bilaterally symmetrical. HEART: S1 and S2 positive. LUNGS: wheezing b/l . ABDOMEN: Soft. Bowel sounds positive. No organomegaly. EXTREMITIES: Upper extremities; no edema, no cyanosis. Legs, bilateral amputation. NEUROLOGIC: The patient is awake and alert. Following simple commands. MEDICATIONS: Brovana, DuoNeb, Ecotrin, folic acid, Lipitor, Nicoderm, famotidine, Pepcid, Solu-Medrol, Tenormin, tramadol, Xanax. LABORATORY DATA: White blood cell is 19.7, hemoglobin 13.9, hematocrit 39.8, and platelets 329. Sodium 139, potassium 4.2, AST 93, ALT 71. ASSESSMENT AND PLAN: Mr. Ousmane Engel is a 77-year-old male with abnormal liver function test, leukocytosis, anemia, proteinuria, ketonuria, hematuria, urinary tract infection, came with examination of chronic obstructive lung disease, active smoker, hypertension, history of peripheral vascular disease, history of above knee amputation bilaterally. Dr. Singh has increased Solu-Medrol to q. 8 hours because the patient is still wheezing. We will do echocardiograph to extract left ventricular function. Gastric prophylaxis and deep venous thrombosis prophylaxis. Nicoderm patch has given. I appreciated Dr. Singh's input. Gastrointestinal and deep vein thrombosis prophylaxis. Repeat labs. We will follow. Trish Hubbard MD [facility] # [id number] MTDD
[2017-04-12] MEDS: Albuterol-Ipratrop 3 mg / 0.5 (3 ml) UD IH SCH ×4 (03:29→21:14)
[2017-04-12] MEDS: MethylPREDNISolone 40 mg Vial IVP SCH ×3 (06:02→21:52)
[2017-04-12 08:15] LABS: ALBUMIN 3.4 g/dL (3.0-4.8); ALT/SGPT 62 U/L (7-56); AST/SGOT 43 U/L (17-59); BLOOD UREA NITROGEN 19 mg/dL (7-21); CALCIUM 9.1 mg/dL (8.4-10.5); GFR AFRICAN-AMERICAN > 60; GFR NON-AFRICAN AMERICAN > 60
[2017-04-12] MEDS: Arformoterol 15 mcg/2 ml Inh Sol IH SCH ×2 (08:29→21:14)
--- NOTE | 2017-04-12 13:25 | CP.PCM.PN ---
<Lo Molina - Last Filed: 04/12/17 21:18> Subjective - Date & Time of Evaluation Date of Evaluation: 04/12/17 Time of Evaluation: 09:45 - Subjective Subjective: 77 yr male w/ history of heavy smoking, emphysema, COPD, 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 Pt seen 04/12/17 in bed stating that he feels better and now wishes to go home. Cough still present but improved. He denies headaches, n/v, chills, diarrhea, constipation, urinary changes. No distress noted. Objective - Vital Signs/Intake and Output Vital Signs (last 24 hours): Temp Pulse Resp BP Pulse Ox 97.8 F 86 22 161/87 H 97 04/11/17 06:00 04/12/17 11:58 04/11/17 06:00 04/12/17 11:58 04/11/17 06:00 Intake and Output: 04/12/17 04/12/17 06:59 18:59 Intake Total 480 Output Total 450 Balance 30 - Medications Medications: Current Medications Albuterol/Ipratropium (Duoneb 3 Mg/0.5 Mg (3 Ml) Ud) 3 ml IH [id number] [facility] Last Admin: 04/12/17 08:29 Dose: 3 ml Albuterol/Ipratropium (Duoneb 3 Mg/0.5 Mg (3 Ml) Ud) 3 ml IH Q2H PRN PRN Reason: Shortness of Breath Last Admin: 04/10/17 12:10 Dose: 3 ml Alprazolam (Xanax) 0.25 mg PO BID PRN PRN Reason: Anxiety Stop: 04/17/17 12:12 Arformoterol Tartrate (Brovana) 15 mcg IH [id number] [facility] Last Admin: 04/12/17 08:29 Dose: 15 mcg Aspirin (Ecotrin) 81 mg PO DAILY [facility] Last Admin: 04/12/17 11:54 Dose: 81 mg Atenolol (Tenormin) 50 mg PO DAILY [facility] Last Admin: 04/12/17 11:58 Dose: 50 mg Atorvastatin Calcium (Lipitor) 10 mg PO DIN [facility] Last Admin: 04/11/17 17:42 Dose: 10 mg Famotidine (Pepcid) 40 mg PO HS [facility] Last Admin: 04/11/17 21:30 Dose: 40 mg Folic Acid (Folic Acid) 1 mg PO DAILY [facility] Last Admin: 04/12/17 11:54 Dose: 1 mg Methylprednisolone (Solu-Medrol) 40 mg IVP Q8 [facility] Last Admin: 04/12/17 06:02 Dose: 40 mg Nicotine (Nicoderm Cq) 1 patch TD DAILY [facility] Last Admin: 04/12/17 11:54 Dose: 1 patch Tramadol HCl (Ultram) 50 mg PO BID [facility] Last Admin: 04/12/17 11:53 Dose: 50 mg - Labs Labs: 04/11/17 09:34 04/12/17 07:30 PT 12.0 SECONDS (9.4-12.5) 04/09/17 19:15 INR 1.10 (0.93-1.08) H 04/09/17 19:15 APTT 31.2 Seconds (25.1-36.5) 04/09/17 19:15 - Constitutional Appears: No Acute Distress, Chronically Ill - Head Exam Head Exam: ATRAUMATIC, NORMAL INSPECTION, NORMOCEPHALIC - Eye Exam Eye Exam: EOMI, Normal appearance, PERRL Additional comments: glasses - ENT Exam ENT Exam: Mucous Membranes Dry Additional comments: very hard of hearing - Neck Exam Neck Exam: Full ROM, Normal Inspection - Respiratory Exam Respiratory Exam: Decreased Breath Sounds, Rhonchi - Cardiovascular Exam Cardiovascular Exam: +S1, +S2, Murmur - GI/Abdominal Exam GI & Abdominal Exam: Soft, Normal Bowel Sounds Additional comments: LLQ colostomy, C/D/I - Extremities Exam Additional comments: bilateral above the knee amputation - Neurological Exam Neurological Exam: Alert, Awake - Psychiatric Exam Psychiatric exam: Anxious - Skin Skin Exam: Dry, Intact, Normal Color, Warm Assessment and Plan (1) UTI (urinary tract infection) Status: Acute (2) Anemia Status: Chronic (3) Abnormal liver function test Status: Acute (4) Congestive heart failure Status: Acute (5) Leukocytosis Status: Acute (6) Proteinuria Status: Acute (7) Ketonuria Status: Acute (8) Hematuria Status: Acute (9) COPD exacerbation Status: Acute (10) Shortness of breath Status: Acute - Assessment and Plan (Free Text) Plan: Ordered labs for trending. Urine cultures positive Kleb pneumoniae. Prescribed Bactrim PO. IV steroids. PT onboard. GI/VTE prophylaxis Consults: Pulmonolgist = Dr. Samantha florian, echo, nicoderm patch Reviewed: ECHO = EF 55%, mild - mod valvular aortic stenosis, mild-mo mitral regurg CXR = WNL CXR = COPD. No acute interval cardiopulmonary disease ECG = ABNORMAL Sinus tachycardia, L axis deviation, nonspecific ST abnormality <Trish Hubbard - Last Filed: 04/12/17 22:07> Objective - Vital Signs/Intake and Output Vital Signs (last 24 hours): Temp Pulse Resp BP Pulse Ox 97.8 F 86 22 161/87 H 97 04/11/17 06:00 04/12/17 11:58 04/11/17 06:00 04/12/17 11:58 04/11/17 06:00 - Medications Medications: Current Medications Albuterol/Ipratropium (Duoneb 3 Mg/0.5 Mg (3 Ml) Ud) 3 ml IH [id number] [facility] Last Admin: 04/12/17 21:14 Dose: 3 ml Albuterol/Ipratropium (Duoneb 3 Mg/0.5 Mg (3 Ml) Ud) 3 ml IH Q2H PRN PRN Reason: Shortness of Breath Last Admin: 04/10/17 12:10 Dose: 3 ml Alprazolam (Xanax) 0.25 mg PO BID PRN PRN Reason: Anxiety Stop: 04/17/17 12:12 Arformoterol Tartrate (Brovana) 15 mcg IH [id number] [facility] Last Admin: 04/12/17 21:14 Dose: 15 mcg Aspirin (Ecotrin) 81 mg PO DAILY [facility] Last Admin: 04/12/17 11:54 Dose: 81 mg Atenolol (Tenormin) 50 mg PO DAILY [facility] Last Admin: 04/12/17 11:58 Dose: 50 mg Atorvastatin Calcium (Lipitor) 10 mg PO DIN [facility] Last Admin: 04/12/17 18:41 Dose: 10 mg Famotidine (Pepcid) 40 mg PO HS [facility] Last Admin: 04/12/17 21:52 Dose: 40 mg Folic Acid (Folic Acid) 1 mg PO DAILY [facility] Last Admin: 04/12/17 11:54 Dose: 1 mg Methylprednisolone (Solu-Medrol) 40 mg IVP Q8 [facility] Last Admin: 04/12/17 21:52 Dose: 40 mg Nicotine (Nicoderm Cq) 1 patch TD DAILY [facility] Last Admin: 04/12/17 11:54 Dose: 1 patch Tramadol HCl (Ultram) 50 mg PO BID [facility] Last Admin: 04/12/17 18:41 Dose: 50 mg Trimethoprim/Sulfamethoxazole (Bactrim Ds Tab) 1 tab PO BID [facility] PRN Reason: Protocol - Labs Labs: 04/11/17 09:34 04/12/17 07:30 PT 12.0 SECONDS (9.4-12.5) 04/09/17 19:15 INR 1.10 (0.93-1.08) H 04/09/17 19:15 APTT 31.2 Seconds (25.1-36.5) 04/09/17 19:15 Assessment and Plan - Assessment and Plan (Free Text) Plan: 77 yr male w/ history of heavy smoking, emphysema, COPD, 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 Pt seen 04/12/17 in bed stating that he feels better and now wishes to go home. Cough still present but improved. He denies headaches, n/v, chills, diarrhea, constipation, urinary changes. No distress noted. pt is seen and examined at bed . looking better , , pul is on the case , cont . neb. tapering dose of steroids , agreed all above .
--- NOTE | 2017-04-12 17:18 | CARD ---
APPROVED REPORT EXAM: Two-dimensional and M-mode echocardiogram with Doppler and color Doppler. INDICATION Congestive Heart Failure 2D DIMENSIONS Left Atrium (2D)2.7 (1.6-4.0cm)IVSd1.0 (0.7-1.1cm) LVDd4.1 (3.9-5.9cm)PWd0.8 (0.7-1.1cm) LVDs3.0 (2.5-4.0cm)FS (%) 28.1 % LVEF (%)54.7 (>50%) M-Mode DIMENSIONS Aortic Root3.00 (2.2-3.7cm)Aortic Cusp Exc.1.20 (1.5-2.0cm) Aortic Valve AoV Peak Ewbsxzky599.0cm/Ranjan Peak GR.12mmHg Mitral Valve MV E Quxaozrp88.1cm/sMV A Aezfyiwy82.8cm/sE/A ratio0.8 TDI E/Lateral E'0.0E/Medial E'0.0 Tricuspid Valve TR Peak Rgshfatx086fe/sRAP [id number] Peak Gr.17mmHg [id number] LEFT VENTRICLE The left ventricle is normal size. There is normal left ventricular wall thickness. The left ventricular function is normal.EF-55% There is normal LV segmental wall motion. Transmitral Doppler flow pattern is Grade III-reversible restrictive diastolic dysfunction. No left ventricle thrombus noted on this study. There is no ventricular septal defect visualized. There is no left ventricular aneurysm. There is no mass noted in the left ventricle. RIGHT VENTRICLE The right ventricle is normal size. There is normal right ventricular wall thickness. The right ventricular systolic function is normal. ATRIA The left atrium size is normal. The right atrium size is normal. The interatrial septum is intact with no evidence for an atrial septal defect. AORTIC VALVE The aortic valve is calcified and displays decreased opening. The aortic valve is moderately sclerotic. There is trace aortic regurgitation. There is mild to moderate valvular aortic stenosis. There is no aortic valvular vegetation. MITRAL VALVE The mitral valve is thickened but opens well. Mitral regurgitation is mild to moderate. There is no mitral valve stenosis. There is no evidence of mitral valve prolapse. TRICUSPID VALVE The tricuspid valve leaflets are thickened , but open well. There is mild tricuspid regurgitation.RVSP-27 mmof Hg. There is no tricuspid valve stenosis. There is no tricuspid valve prolapse or vegetation. PULMONIC VALVE The pulmonary valve is normal in structure. There is no pulmonic valvular regurgitation. There is no pulmonic valvular stenosis. GREAT VESSELS The aortic root is normal in size. The ascending aorta is normal in size. The pulmonary artery is normal. The IVC is normal in size and collapses >50% with inspiration. PERICARDIAL EFFUSION There is no pleural effusion. There is no pericardial effusion. <Conclusion> The left ventricle is normal size. There is normal left ventricular wall thickness. The left ventricular function is normal.EF-55% There is trace aortic regurgitation. There is mild to moderate valvular aortic stenosis. Mitral regurgitation is mild to moderate. There is mild tricuspid regurgitation.RVSP-27 mmof Hg. There is no pericardial effusion. No Vegetation or thrombus noted.
--- NOTE | 2017-04-12 19:03 | PN ---
PULMONARY PROGRESS NOTE DATE: 04/12/2017. REFERRING PHYSICIAN: Dr. Hubbard. SUBJECTIVE: The patient is lying in the bed, head at 45 degree. Feels better. Decreased cough, decreased short of breath. No nausea, no vomiting, no diarrhea. No leg swelling. OBJECTIVE: GENERAL: In no acute distress. VITAL SIGNS: Temperature is 98, heart is 66, respiratory rate is 22, blood pressure 139/85, pulse ox 97% on 3 liters nasal cannula. HEENT: Moist mucous membrane. Crowded airway. NECK: Supple. No JVD. LUNGS: Has expiratory wheezing and scattered rhonchi. HEART: S1 and S2. ABDOMEN: Soft, nontender. No organomegaly. EXTREMITIES: Has a bilateral AKA. NEUROLOGIC: Awake, alert, and follows simple commands. MEDICATIONS: He is on Brovana 50 mcg inhaled twice a day, DuoNeb q. 6 hours and also q. 12 hours p.r.n., Ecotrin 81 mg daily, folic acid 1 mg daily, Lipitor 10 mg daily, Nicoderm patch daily, Pepcid 40 mg h.s., Solu-Medrol 40 mg q. 8 hours, Tenormin 50 mg daily, Tramadol 50 mg twice a day, Xanax 0.25 mg twice a day p.r.n. LABORATORY DATA: Shows sodium 136, potassium 2.8, chloride 98, bicarbonate 33, BUN 19, creatinine 0.7, glucose 156, calcium 9.1, AST 43, ALT 62, and alkaline phosphatase is 64. Total protein 6.9 and albumin is 3.4. Urine has Klebsiella pneumoniae. Echocardiogram done, report is still pending. IMPRESSION AND PLAN: Chronic obstructive lung disease, active smoker, hypertension, peripheral vascular disease, status post bilateral above knee amputation, rule out heart failure, and urinary tract infection. We will continue IV and inhaled bronchodilator, gastric prophylaxis. We will start Bactrim. Awaiting for echocardiogram report. Thank you and we will follow with you. Donn Singh MD
[2017-04-13] MEDS: Albuterol-Ipratrop 3 mg / 0.5 (3 ml) UD IH SCH ×3 (01:25→14:05)
[2017-04-13] MEDS: MethylPREDNISolone 40 mg Vial IVP SCH (05:36)
[2017-04-13] MEDS: Arformoterol 15 mcg/2 ml Inh Sol IH SCH (07:46)
[2017-04-13 08:04] LABS: ALBUMIN 3.2 g/dL (3.0-4.8); ALT/SGPT 66 U/L (7-56); AST/SGOT 42 U/L (17-59); BLOOD UREA NITROGEN 17 mg/dL (7-21); CALCIUM 8.9 mg/dL (8.4-10.5); GFR AFRICAN-AMERICAN > 60; GFR NON-AFRICAN AMERICAN > 60
[2017-04-13 08:06] LABS: GRAN # 13.42 (1.4-6.5); GRAN % 95.3 % (50.0-68.0); HEMOGLOBIN 13.7 g/dL (14.0-18.0); LYMPH # 0.3 (1.2-3.4); LYMPH % 1.9 % (22.0-35.0); MEAN CELL VOLUME 96.3 fl (80.0-105.0); MEAN CORPUSCULAR HEMOGLOBIN 33.4 pg (25.0-35.0); MEAN CORPUSCULAR HGB CONC 34.7 g/dl (31.0-37.0); MONO # 0.4 (0.1-0.6); MONO % 2.8 % (1.0-6.0); PLATELET COUNT 328 10^3/uL (120.0-450.0); RED CELL DISTRIBUTION WIDTH 13.5 % (11.5-14.5); WHITE BLOOD COUNT 14.1 10^3/ul (4.5-11.0)
[2017-04-13 09:42] VITALS: BP 167/84; PULSE 58; RESP 20; TEMP 98.1; O2SAT 100
[2017-04-13 10:30] LABS: LYMPHOCYTE 2 % (22.0-35.0); MONOCYTE 2 % (1.0-6.0); NEUTROPHIL 96 % (50.0-70.0); PLATELET ESTIMATE NORMAL (NORMAL)
[2017-04-13] MEDS: Tmp-Smz 800 mg-160 mg DS Tab PO SCH ×2 (12:29→16:14)
--- NOTE | 2017-04-13 22:14 | PN ---
PULMONARY PROGRESS NOTE DATE: 04/13/2017 REFERRING PHYSICIAN: Trish Hubbard MD SUBJECTIVE: He is sitting up in the bed, night was unremarkable, still having cough, short of breath and wheezing. No nausea. No vomiting, diarrhea, leg pain or leg swelling. OBJECTIVE: GENERAL: In no acute distress. VITAL SIGNS: Temperature is 98, heart rate is 58, respiratory rate is 20, blood pressure is 167/84, and pulse ox is 100% on nasal cannula. HEENT: Moist mucous membrane. No ulcer or thrust noted. NECK: Supple. No JVD. LUNGS: Has a expiratory wheezing and some rhonchi. HEART: S1 and S2. ABDOMEN: Soft and nontender. No organomegaly. EXTREMITIES: Has a bilateral AKA. NEUROLOGIC: Awake, alert, and follow simple commands. LABORATORY DATA: Shows hemoglobin 13.7, hematocrit 39.5, WBC 14.1, and platelet count is 328. Sodium 137, potassium 3.6, chloride 98, bicarbonate 34, BUN 17, creatinine 0.7, glucose 140, calcium is 8.9, total bilirubin is 0.4, AST 42, ALT 66, alkaline phosphatase is 61, and albumin is 3.2. Urine culture has Klebsiella pneumoniae. Echocardiogram done shows right ventricular systolic pressure is 27, LV ejection fraction is 55%. There is wbcr-tz-bufqqais valvular aortic stenosis. MEDICATIONS: Reviewed and noted, no new changes in medication reported since yesterday. IMPRESSION AND PLAN: Chronic obstructive lung disease, active smoker, hypertension, peripheral vascular disease, history of bilateral above-knee amputation, has a normal heart with congestive heart failure, and has a high proBNP. Echo is unremarkable. Continue IV and inhaled bronchodilator, small dose of diuretics, and gastric and deep venous thrombosis prophylaxis. Thank you and we will follow with you. Donn Singh MD
--- NOTE | 2017-04-14 08:19 | DS ---
CHIEF COMPLAINT: Coughing and shortness of breath. HISTORY OF PRESENT ILLNESS: Mr. Ousmane Engel is a 77-year-old male with past medical history of COPD, emphysema, bilateral amputation of the legs due to poor circulation, heavy smoking, was admitted in [facility] couple of days ago, left against medical advise due to holidays, came back on 04/09/2017 with the same complaints. We admitted the patient, did chest x-ray . The patient got antibiotics, tapering dose of steroid, inhaled bronchodilators, improved, now transferred to TCU for tapering dose of steroid and continuity of care. Plan is to give the patient chest physical therapy. PAST MEDICAL HISTORY: Hypertension, definite history of colostomy, history of heavy drinking and smoking, drinks 6 packs of beer every day, bilateral amputation due to poor circulation as per patient. FAMILY HISTORY: Father and mother noncontributory. HABITS: Heavy smoking, he smokes one to slx-uzz-c-half pack every day. Alcohol, yes. Substance abuse, no as per the patient. ALLERGIES: THE PATIENT IS NOT ALLERGIC TO ANY MEDICATIONS. HOME MEDICATIONS: Reviewed by me. REVIEW OF SYSTEMS: The patient was seen and examined at the bedside, looking comfortable, still coughing, shortness of breath and with congestion. No fever. No chills. No nausea or vomiting. Denies any hematuria or hematochezia. No swelling of the legs. No headache or dizziness. PHYSICAL EXAMINATION: VITAL SIGNS: Temperature 98, heart rate 58, respiratory rate 20, blood pressure 157/84, pulse oximetry 100% on nasal cannula. HEENT: Head, normocephalic and atraumatic. Eyes, PERRLA. Extraocular muscles are intact. Conjunctivae are clear. Nose is patent. Mucous membranes moist. NECK: Supple. No carotid bruits. No JVD or thyromegaly. LUNGS: Expiratory wheezing and some rhonchi. HEART: S1, S2 positive. ABDOMEN: Soft, nontender. No organomegaly. EXTREMITIES: He has bilateral AKA. NEUROLOGICAL: The patient is awake and alert. Follows simple commands. LABORATORY DATA: Hemoglobin 13.7, hematocrit 39.5, white blood cells 40.1, and platelets 328. Sodium 137, potassium 3.6, BUN 17, creatinine 0.7, glucose 140. AST 42, and ALT 66. Urine culture has Klebsiella pneumoniae. ASSESSMENT AND PLAN: Mr. Ousmane Engel is a 77-year-old male. He has multiple medical problems, has chronic obstructive lung disease, active smoker and heavy smoker, hypertension, peripheral vascular disease, history of bilateral amputation above the knee, congestive heart failure, has increased pro brain natriuretic peptide, echocardiogram is unremarkable, urinary tract infection, continue IV and inhaled bronchodilators and small doses of diuretics, gastric and deep venous thrombosis prophylaxis. Continue tapering dose of Solu-Medrol. Consult the patient to transitional care unit for physical therapy and continuity of care and to taper down the steroids. Length of time discussion done with the patient and with the staff, and we will follow up. Trish Hubbard MD MTDD
== END 2017-04-13 17:27 | DRG 191 ==
LOC: ED 17:48 → ERH 18:25 → 3RSO 04-10 03:29 → 5RSO 04-10 17:50
PROVIDERS: ADMIT Internal Medicine; ATTEND Internal Medicine
DX: J44.1 Chronic obstructive pulmonary disease with (acute) exacerbation (principal); N39.0 Urinary tract infection, site not specified; I11.0 Hypertensive heart disease with heart failure; I50.9 Heart failure, unspecified; B96.1 Klebsiella pneumoniae [K. pneumoniae] as the cause of diseases classified elsewhere; J45.901 Unspecified asthma with (acute) exacerbation; D64.9 Anemia, unspecified; J44.0 Chronic obstructive pulmonary disease with (acute) lower respiratory infection; I73.9 Peripheral vascular disease, unspecified; F17.210 Nicotine dependence, cigarettes, uncomplicated; H91.90 Unspecified hearing loss, unspecified ear; J20.9 Acute bronchitis, unspecified; Z79.82 Long term (current) use of aspirin; Z79.899 Other long term (current) drug therapy; Z89.611 Acquired absence of right leg above knee; Z89.612 Acquired absence of left leg above knee; Z93.3 Colostomy status; R40.2412 Glasgow coma scale score 13-15, at arrival to emergency department; R31.9 Hematuria, unspecified; R82.4 Acetonuria; R80.9 Proteinuria, unspecified

== ENCOUNTER 2017-04-13 17:05 | Inpatient (IN) | payer OTHER ==
[2017-04-13] MEDS ORDERED: Albuterol-Ipratrop 3 mg / 0.5 (3 ml) UD IH PRN (18:33)
[2017-04-13 19:42] VITALS: BMI 40.2
[2017-04-13] MEDS ORDERED: Pneumococcal 23-Valent Vaccine IM ONE (19:42)
[2017-04-13] MEDS ORDERED: Influenza Vaccine 60 mcg/0.5 mL SYR (4YR UP) IM ONE (19:42)
[2017-04-13] MEDS: MethylPREDNISolone 40 mg Vial IVP SCH (21:37)
[2017-04-13] MEDS: Albuterol-Ipratrop 3 mg / 0.5 (3 ml) UD IH SCH (22:10)
[2017-04-13] MEDS: Arformoterol 15 mcg/2 ml Inh Sol IH SCH (22:15)
[2017-04-14] MEDS: Albuterol-Ipratrop 3 mg / 0.5 (3 ml) UD IH SCH ×4 (03:58→21:50)
[2017-04-14] MEDS: MethylPREDNISolone 40 mg Vial IVP SCH ×3 (05:45→21:46)
[2017-04-14 06:33] LABS: BASO # 0.01 K/mm3 (0.0-2.0); BASO % 0.1 % (0.0-3.0); GRAN # 17.28 (1.4-6.5); HEMOGLOBIN 13.9 g/dL (14.0-18.0); LYMPH # 0.4 (1.2-3.4); LYMPH % 2.1 % (22.0-35.0); MEAN CELL VOLUME 96.4 fl (80.0-105.0); MEAN CORPUSCULAR HEMOGLOBIN 33.1 pg (25.0-35.0); MEAN CORPUSCULAR HGB CONC 34.3 g/dl (31.0-37.0); MEAN PLATELET VOLUME 8.9 fl (7.0-11.0); MONO # 0.5 (0.1-0.6); MONO % 2.8 % (1.0-6.0); RBC 4.2 10^6/uL (3.5-6.1); RED CELL DISTRIBUTION WIDTH 13.5 % (11.5-14.5); WHITE BLOOD COUNT 18.2 10^3/ul (4.5-11.0)
[2017-04-14] MEDS: Arformoterol 15 mcg/2 ml Inh Sol IH SCH ×2 (07:12→21:50)
[2017-04-14] MEDS: Tmp-Smz 800 mg-160 mg DS Tab PO SCH ×2 (10:00→17:25)
[2017-04-15] MEDS: Albuterol-Ipratrop 3 mg / 0.5 (3 ml) UD IH SCH ×4 (03:15→19:03)
--- NOTE | 2017-04-15 04:30 | CON ---
DATE: 04/14/2017 PULMONARY CONSULT REFERRING PHYSICIAN: Trish Hubbard MD REASON FOR CONSULTATION: Chronic obstructive lung disease, cough and shortness of breath. HISTORY OF PRESENT ILLNESS: This is a 77-year-old gentleman, who is known to me from [facility] side of the hospital, has a chronic obstructive lung disease; peripheral vascular disease, requiring bilateral AKA; history of colostomy, laparotomy in the remote past, who was admitted to [facility] with COPD exacerbation, found to have a BNP high, was given small dose of Lasix, treated with antibiotics and IV and inhaled bronchodilators, slowly improving, presently admitted to TICU for continued care. He is lying in the bed, still have a little short of breath and cough. No nausea. No vomiting. No diarrhea. PAST MEDICAL HISTORY: As per history of present illness. SOCIAL HISTORY: He is active smoker. Denied any alcohol use. FAMILY HISTORY: No significant cardiopulmonary disease reported. ALLERGIES: NONE KNOWN. MEDICATIONS: He is on Bactrim Double Strength 1 tablet twice a day; Brovana inhaled twice a day; DuoNeb q. 12 hours p.r.n., and also DuoNeb yxcxo-xnn-lishr q.6 hours; Ecotrin 81 mg daily; folic acid 1 mg daily; Lipitor 10 mg daily; Nicoderm patch daily; Pepcid 40 mg daily; Solu-Medrol 40 mg q.8 hours; Tenormin 50 mg daily; Ultram 50 mg twice a day; Xanax 0.25 mg twice a day p.r.n. REVIEW OF SYSTEMS: No headache. No rhinitis. Cough is better. No nausea. No vomiting. No diarrhea. No leg pain or leg swelling. PHYSICAL EXAMINATION: GENERAL: In no acute distress. VITAL SIGNS: Temperature is 98, heart rate is 71, respiratory rate is 18, blood pressure is 128/74, and pulse oximetry of 96% on room air. HEENT: Moist mucous membranes. Crowded airway. NECK: Supple. No JVD. LUNGS: Have bilateral expiratory wheezing. HEART: S1 and S2. ABDOMEN: Soft and nontender. No organomegaly. EXTREMITIES: There is no edema. Bilateral AKA. NEUROLOGIC: Awake, alert, follows simple command. LABORATORY DATA: Shows hemoglobin 13.9, hematocrit 40.5, WBC 18.2, and platelet count is 348. IMPRESSION AND PLAN: Chronic obstructive lung disease, active smoker, hypertension, peripheral vascular disease, status post bilateral vuigk-jhs-motl amputations, has a high proBNP with normal left ventricular and right ventricular function, may be heart failure with normal heart function. So, pulmonary point of view, continue IV and inhaled bronchodilator. Keep head at 45 degrees on and off, use diuretics on an as needed basis, fall precaution. Thank you and we will follow with you. Donn Singh MD
[2017-04-15] MEDS: MethylPREDNISolone 40 mg Vial IVP SCH ×3 (05:31→21:28)
--- NOTE | 2017-04-15 05:56 | HP ---
CHIEF COMPLAINT: Shortness of breath, congestion. HISTORY OF PRESENT ILLNESS: Mr. Ousmane Engel is a 77-year-old male with history of multiple medical problems, was admitted in [facility] last week with a similar complaint, signed against medical advice and went home, now after holidays came back with the same complaints, admitted on 04/13/2017 to the medical floor for COPD exacerbation. The patient has history of COPD, emphysema, bilateral amputation of the legs due to poor circulation, still actively smoking with tapering dose of steroids, seen by fire prevention bureau captain, the patient improved. Nicotine patch was given as substitute for smoking, needs surgical therapy bedside, and needs tapering dose of steroid so we take him to TCU for further treatment, continuity of care, and physical therapy. PAST MEDICAL HISTORY: History of hypertension, history of colostomy, history of heavy drinking and smoking, drinks six packs of beer everyday, bilateral amputation due to poor circulation as per patient. FAMILY HISTORY: Father and mother noncontributory. HABITS: Heavy smoking, he smokes about one and [id number]-half pack every day. Alcohol, yes. Substance abuse, no as per the patient. ALLERGIES: THE PATIENT IS NOT ALLERGIC TO ANY MEDICATIONS. HOME MEDICATIONS: Reviewed by me. REVIEW OF SYSTEMS: The patient was seen and examined at the bedside and looking comfortable. No nausea, vomiting, diarrhea. No hematemesis or hematochezia. No swelling of the upper extremities. No headaches, no dizziness. No chest pain or palpitation. PHYSICAL EXAMINATION: VITAL SIGNS: Temperature 98.2, pulse 58, blood pressure 160/84, respiratory rate 20. HEENT: Head, normocephalic and atraumatic. Eyes, PERRLA. Extraocular muscles intact. Conjunctivae clear. Nose patent. Mucous membranes moist. NECK: Supple. No carotid bruits. No JVD or thyromegaly. CHEST: Bilaterally symmetrical. HEART: S1 and S2 positive. LUNGS: Clear to auscultation. ABDOMEN: Soft. Bowel sounds are present. No organomegaly. EXTREMITIES: Upper extremities, no edema, no cyanosis. Lower extremities, AKA, no edema, no cyanosis. NEUROLOGIC: The patient is awake, alert, and moving all four extremities. No focal deficits. LABORATORY DATA: White blood cell 14.1, hemoglobin 13.7, hematocrit 39.5, platelets 328. Sodium 137, potassium 3.6, BUN 17, creatinine 0.7, glucose 140. ALT 66, trending down. History of proteinuria, ketonuria, hematuria. Influenza type A and B, negative. ASSESSMENT AND PLAN: Mr. Ousmane Engel is a 77-year-old male with multiple medical problems, chronic obstructive lung disease, actively and heavily smoking and drinking. Gastrointestinal and deep venous thrombosis prophylaxis. 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 We will continue present treatment. Repeat labs. We will follow. Trish Hubbard MD
[2017-04-15] MEDS: Arformoterol 15 mcg/2 ml Inh Sol IH SCH ×2 (07:23→19:03)
[2017-04-15] MEDS: guaiFENesin-DM 600-30 mg ER Tab PO SCH ×2 (09:56→17:19)
[2017-04-15] MEDS: Tmp-Smz 800 mg-160 mg DS Tab PO SCH ×2 (10:05→17:20)
--- NOTE | 2017-04-15 12:51 | CP.PCM.PN ---
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 In TCU for physical therapy and tapering of IV steroids. Cough still present but improved. He denies headaches, n/v, chills, diarrhea, constipation, urinary changes. No distress noted. Objective - Vital Signs/Intake and Output Vital Signs (last 24 hours): Temp Pulse Resp BP Pulse Ox 97.8 F 78 20 131/71 98 04/15/17 10:00 04/15/17 10:01 04/15/17 10:00 04/15/17 10:01 04/15/17 10:00 - Medications Medications: Current Medications Albuterol/Ipratropium (Duoneb 3 Mg/0.5 Mg (3 Ml) Ud) 3 ml IH Q2H PRN; Protocol PRN Reason: Shortness of Breath Albuterol/Ipratropium (Duoneb 3 Mg/0.5 Mg (3 Ml) Ud) 3 ml IH [id number] STEPHANIE PRN Reason: Protocol Last Admin: 04/15/17 07:23 Dose: 3 ml Alprazolam (Xanax) 0.25 mg PO BID PRN; Protocol PRN Reason: Anxiety Stop: 04/20/17 18:16 Arformoterol Tartrate (Brovana) 15 mcg IH [id number] STEPHANIE PRN Reason: Protocol Last Admin: 04/15/17 07:23 Dose: 15 mcg Aspirin (Ecotrin) 81 mg PO 0800 STEPHANIE PRN Reason: Protocol Last Admin: 04/15/17 08:11 Dose: 81 mg Atenolol (Tenormin) 50 mg PO DAILY STEPHANIE PRN Reason: Protocol Last Admin: 04/15/17 10:01 Dose: 50 mg Atorvastatin Calcium (Lipitor) 10 mg PO DIN STEPHANIE PRN Reason: Protocol Last Admin: 04/14/17 17:25 Dose: 10 mg Famotidine (Pepcid) 40 mg PO HS STEPHANIE PRN Reason: Protocol Last Admin: 04/14/17 21:45 Dose: 40 mg Folic Acid (Folic Acid) 1 mg PO DAILY STEPHANIE PRN Reason: Protocol Last Admin: 04/15/17 10:05 Dose: 1 mg Guaifenesin/Dextromethorphan (Mucinex-Dm 600-30 Mg) 1 tab PO BID STEPHANIE PRN Reason: Protocol Last Admin: 04/15/17 09:56 Dose: 1 tab Methylprednisolone (Solu-Medrol) 40 mg IVP 0600,1400,2200 STEPHANIE PRN Reason: Protocol Last Admin: 04/15/17 05:31 Dose: 40 mg Nicotine (Nicoderm Cq) 1 patch TD DAILY STEPHANIE PRN Reason: Protocol Last Admin: 04/15/17 09:57 Dose: 1 patch Tramadol HCl (Ultram) 50 mg PO BID STEPHANIE PRN Reason: Protocol Last Admin: 04/15/17 09:59 Dose: 50 mg Trimethoprim/Sulfamethoxazole (Bactrim Ds Tab) 1 tab PO BID STEPHANIE PRN Reason: Protocol Last Admin: 04/15/17 10:05 Dose: 1 tab - Labs Labs: 04/14/17 06:00 - Constitutional Appears: Chronically Ill - Head Exam Head Exam: ATRAUMATIC, NORMAL INSPECTION, NORMOCEPHALIC - Eye Exam Eye Exam: EOMI, Normal appearance, PERRL Additional comments: glasses - ENT Exam ENT Exam: Mucous Membranes Moist, Normal Exam Additional comments: very hard of hearing - Neck Exam Neck Exam: Full ROM, Normal Inspection. absent: Lymphadenopathy - Respiratory Exam Respiratory Exam: Decreased Breath Sounds, NORMAL BREATHING PATTERN - Cardiovascular Exam Cardiovascular Exam: REGULAR RHYTHM, +S1, +S2. absent: Murmur - Rectal Exam Additional comments: LLQ colostomy, C/D/I, stoma appears enlarged. copious brown soft stool present. - Extremities Exam Additional comments: bilateral above the knee amputation. stumps offloaded on pillows. - Back Exam Back Exam: NORMAL INSPECTION - Neurological Exam Neurological Exam: Alert, Awake, Oriented x3 - Psychiatric Exam Psychiatric exam: Normal Affect, Normal Mood - Skin Skin Exam: Dry, Intact, Normal Color, Warm Assessment and Plan (1) Bronchitis Status: Acute (2) COPD exacerbation Status: Acute (3) Congestive heart failure Status: Acute (4) UTI (urinary tract infection) Status: Acute (5) Weakness Status: Acute (6) Leukocytosis Status: Acute (7) Anemia Status: Chronic - Assessment and Plan (Free Text) Plan: Ordered labs for trending. Urine cultures positive Kleb pneumoniae. Prescribed Bactrim PO. IV steroids. PT/OT onboard. GI/VTE prophylaxis Consults: Pulmonolgist = Dr. Samantha florian, IV and inhaled bronchodilator, HOB 45, diuretics PRN, nicoderm patch Reviewed: ECHO = EF 55%, mild - mod valvular aortic stenosis, mild-mo mitral regurg CXR = WNL CXR = COPD. No acute interval cardiopulmonary disease ECG = ABNORMAL Sinus tachycardia, L axis deviation, nonspecific ST abnormality <Trish Hubbard - Last Filed: 04/15/17 13:46> Objective - Vital Signs/Intake and Output Vital Signs (last 24 hours): Temp Pulse Resp BP Pulse Ox 97.8 F 78 20 131/71 98 04/15/17 10:00 04/15/17 10:01 04/15/17 10:00 04/15/17 10:01 04/15/17 10:00 - Medications Medications: Current Medications Albuterol/Ipratropium (Duoneb 3 Mg/0.5 Mg (3 Ml) Ud) 3 ml IH Q2H PRN; Protocol PRN Reason: Shortness of Breath Albuterol/Ipratropium (Duoneb 3 Mg/0.5 Mg (3 Ml) Ud) 3 ml IH [id number] STEPHANIE PRN Reason: Protocol Last Admin: 04/15/17 07:23 Dose: 3 ml Alprazolam (Xanax) 0.25 mg PO BID PRN; Protocol PRN Reason: Anxiety Stop: 04/20/17 18:16 Arformoterol Tartrate (Brovana) 15 mcg IH [id number] STEPHANIE PRN Reason: Protocol Last Admin: 04/15/17 07:23 Dose: 15 mcg Aspirin (Ecotrin) 81 mg PO 0800 STEPHANIE PRN Reason: Protocol Last Admin: 04/15/17 08:11 Dose: 81 mg Atenolol (Tenormin) 50 mg PO DAILY STEPHANIE PRN Reason: Protocol Last Admin: 04/15/17 10:01 Dose: 50 mg Atorvastatin Calcium (Lipitor) 10 mg PO DIN STEPHANIE PRN Reason: Protocol Last Admin: 04/14/17 17:25 Dose: 10 mg Famotidine (Pepcid) 40 mg PO HS STEPHANIE PRN Reason: Protocol Last Admin: 04/14/17 21:45 Dose: 40 mg Folic Acid (Folic Acid) 1 mg PO DAILY STEPHANIE PRN Reason: Protocol Last Admin: 04/15/17 10:05 Dose: 1 mg Guaifenesin/Dextromethorphan (Mucinex-Dm 600-30 Mg) 1 tab PO BID STEPHANIE PRN Reason: Protocol Last Admin: 04/15/17 09:56 Dose: 1 tab Methylprednisolone (Solu-Medrol) 40 mg IVP 0600,1400,2200 STEPHANIE PRN Reason: Protocol Last Admin: 04/15/17 05:31 Dose: 40 mg Nicotine (Nicoderm Cq) 1 patch TD DAILY STEPHANIE PRN Reason: Protocol Last Admin: 04/15/17 09:57 Dose: 1 patch Tramadol HCl (Ultram) 50 mg PO BID STEPHANIE PRN Reason: Protocol Last Admin: 04/15/17 09:59 Dose: 50 mg Trimethoprim/Sulfamethoxazole (Bactrim Ds Tab) 1 tab PO BID STEPHANIE PRN Reason: Protocol Last Admin: 04/15/17 10:05 Dose: 1 tab - Labs Labs: 04/14/17 06:00 Assessment and Plan - Assessment and Plan (Free Text) Plan: 77 yr male w/ history of heavy smoking, emphysema, COPD, 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 In TCU for physical therapy and tapering of IV steroids. Cough still present but improved. He denies headaches, n/v, chills, diarrhea, constipation, urinary changes. No distress noted. pt is seen and examined at bed side . looking comfortable ,still coughing , but less . getting pt . especially chest pt . will f/u d/d with staff anp .
--- NOTE | 2017-04-15 21:36 | PN ---
DATE: 04/15/2017 PULMONARY PROGRESS NOTE REFERRING PHYSICIAN: Trish Hubbard MD SUBJECTIVE: He is lying in the bed, night was unremarkable, feels a little bit better. Decrease cough and shortness of breath. No nausea. No vomiting or diarrhea. OBJECTIVE: GENERAL: In no acute distress. VITAL SIGNS: Temperature is 98, heart rate is 75, respiratory rate is 20, blood pressure is 135/85, and pulse ox is 97% on nasal cannula. HEENT: Moist mucous membrane. Crowded airway. NECK: Supple. No JVD. LUNGS: Has a prolong expiratory phase with some wheezing. HEART: S1 and S2. ABDOMEN: Soft and nontender. No organomegaly. EXTREMITIES: No edema. NEUROLOGIC: Awake, alert, and follow simple commands. MEDICATIONS: He is on Bactroban double strength one tab twice a day, Brovana inhaled twice a day, DuoNeb q. 2 hours p.r.n., q. 6 hours round the clock, Ecotrin 81 mg daily, folic acid 1 mg daily, Lipitor 10 mg daily, Mucinex one tab twice a day, Nicoderm patch daily, Pepcid 40 mg daily, Solu-Medrol 40 mg three times a day, Tenormin 50 mg daily, tramadol 50 mg twice a day, Xanax 0.25 mg twice a day p.r.n. LABORATORY DATA: Reviewed and no new lab is available since yesterday. IMPRESSION AND PLAN: Chronic obstructive lung disease, active smoker, hypertension, peripheral vascular disease, status post bilateral above-knee amputation in the remote past, also may have mild heart failure. Pulmonary point of view, doing okay. Continue IV and inhaled bronchodilator, p.r.n. diuretics, gastric prophylaxis, deep venous thrombosis prophylaxis, fall precaution, out of bed to wheelchair. Thank you and we will follow with you. Donn Singh MD
[2017-04-16] MEDS: Albuterol-Ipratrop 3 mg / 0.5 (3 ml) UD IH SCH ×3 (03:30→23:23)
[2017-04-16] MEDS: MethylPREDNISolone 40 mg Vial IVP SCH ×3 (05:41→21:48)
[2017-04-16] MEDS: Arformoterol 15 mcg/2 ml Inh Sol IH SCH ×2 (07:28→23:22)
[2017-04-16] MEDS: Tmp-Smz 800 mg-160 mg DS Tab PO SCH ×2 (10:19→17:20)
[2017-04-16] MEDS: guaiFENesin-DM 600-30 mg ER Tab PO SCH ×2 (10:19→17:21)
[2017-04-17] MEDS: Albuterol-Ipratrop 3 mg / 0.5 (3 ml) UD IH SCH ×3 (01:52→15:15)
--- NOTE | 2017-04-17 04:16 | PN ---
DATE: 04/16/2017 REFERRING PHYSICIAN: Trish Hubbard MD SUBJECTIVE: He is lying in the bed, head at 45 degrees. Feels better. Decreased cough, decreased shortness of breath. No nausea. No vomiting, no diarrhea. No leg pain or leg swelling. OBJECTIVE: GENERAL: In no acute distress. VITAL SIGNS: Temperature is 98, heart rate is 76, respiratory rate is 18, blood pressure is 148/86, pulse ox is 97% on room air. HEENT: Moist mucous membrane. No ulcer or thrush. NECK: Supple. No JVD. LUNGS: Has a prolonged expiratory phase and wheezing. HEART: S1 and S2. ABDOMEN: Soft, nontender. No organomegaly. EXTREMITIES: Bilateral AKA. NEUROLOGIC: Awake, alert, and follows simple commands. MEDICATIONS: He is on Bactrim Double Strength one tablet twice a day; Brovana inhaled twice a day; DuoNeb q.12 hours p.r.n., and q.6 hours [id number]; Ecotrin 81 mg daily; folic acid 1 mg daily; Lipitor 10 mg daily; Mucinex DM one tab twice a day; Nicoderm patch daily; Pepcid 40 mg daily; Solu-Medrol 40 mg three times a day; Tenormin 50 mg daily; Ultram 50 mg twice a day; Xanax 0.25 mg twice a day p.r.n. LABORATORY DATA: Reviewed. No new lab is available. IMPRESSION AND PLAN: Chronic obstructive lung disease, active smoker, hypertension, peripheral vascular disease, status post bilateral above-knee amputation in the remote past, mild heart failure with normal cardiac function. Pulmonary point of view, doing okay. Continue IV and inhaled bronchodilator. The patient is encouraged to stop smoking. Gastric prophylaxis and deep venous thrombosis. Continue therapy. Thank you and we will follow with you. Donn Singh MD
--- NOTE | 2017-04-17 04:24 | PN ---
DATE: SUBJECTIVE: The patient is seen and examined at the bedside, looking comfortable, cough is better, shortness of breath is better, chest pain is better. No nausea, vomiting, or diarrhea. No hematuria or hematochezia. No headache. No dizziness. The patient's mental level is okay, oriented x3, hard of hearing. PHYSICAL EXAMINATION VITAL SIGNS: Temperature 98.5, pulse 76, blood pressure 148/86, and respiratory rate 18. HEENT: Head; normocephalic and atraumatic. Eyes; PERRLA. Extraocular muscles intact. Conjunctivae clear. Nose, patent. NECK: Supple. No carotid bruit. No JVD or thyromegaly. CHEST: Bilaterally symmetrical. HEART: S1 and S2 positive. LUNGS: Clear to auscultation. ABDOMEN: Soft. Bowel sounds positive. No organomegaly. EXTREMITIES: No edema. No cyanosis. Upper extremities, no edema and no cyanosis. NEUROLOGIC: The patient is awake and alert, moving all two extremities. No focal deficits. LABORATORY DATA: White blood cell 8.2, hemoglobin 13.9, hematocrit 40.5, and platelets 348. MEDICATIONS: Bactrim, Brovana, DuoNeb, Ecotrin, folic acid, Lipitor, cough syrup, Nicoderm, Pepcid, Solu-Medrol, Tenormin, tramadol, and Xanax. ASSESSMENT AND PLAN: Mr. Ousmane Engel is a 77-year-old male with history of chronic obstructive lung disease, active smoker; hypertension; noncompliant and wanted to go home last time signed against medical advice and came back next day; peripheral vascular disease, status post bilateral [id number] amputation in the remote past due to bad circulation; history of mild heart failure. We will continue IV and inhaled bronchodilators, p.r.n. diuretics, gastric prophylaxis, deep vein thrombosis prophylaxis, tapering dose of steroid, and we will follow up. Trish Hubbard MD
[2017-04-17] MEDS: MethylPREDNISolone 40 mg Vial IVP SCH ×3 (05:35→21:04)
[2017-04-17] MEDS: Arformoterol 15 mcg/2 ml Inh Sol IH SCH (07:40)
[2017-04-17] MEDS: Tmp-Smz 800 mg-160 mg DS Tab PO SCH ×2 (10:37→17:48)
[2017-04-17] MEDS: guaiFENesin-DM 600-30 mg ER Tab PO SCH ×2 (10:37→17:48)
[2017-04-17 16:55] VITALS: RESP 18
--- NOTE | 2017-04-17 17:56 | CP.PCM.PN ---
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 In TCU for physical therapy and tapering of IV steroids. Pt wants to start discharge planning. He denies headaches, n/v, chills, diarrhea, constipation, urinary changes. No distress noted. Objective - Vital Signs/Intake and Output Vital Signs (last 24 hours): Temp Pulse Resp BP Pulse Ox 98 F 67 18 117/66 97 04/17/17 16:00 04/17/17 16:00 04/17/17 16:00 04/17/17 16:00 04/17/17 16:00 - Medications Medications: Current Medications Albuterol/Ipratropium (Duoneb 3 Mg/0.5 Mg (3 Ml) Ud) 3 ml IH Q2H PRN; Protocol PRN Reason: Shortness of Breath Albuterol/Ipratropium (Duoneb 3 Mg/0.5 Mg (3 Ml) Ud) 3 ml IH [id number] STEPHANIE PRN Reason: Protocol Last Admin: 04/17/17 15:15 Dose: 3 ml Alprazolam (Xanax) 0.25 mg PO BID PRN; Protocol PRN Reason: Anxiety Stop: 04/20/17 18:16 Arformoterol Tartrate (Brovana) 15 mcg IH [id number] STEPHANIE PRN Reason: Protocol Last Admin: 04/17/17 07:40 Dose: 15 mcg Aspirin (Ecotrin) 81 mg PO 0800 STEPHANIE PRN Reason: Protocol Last Admin: 04/17/17 08:42 Dose: 81 mg Atenolol (Tenormin) 50 mg PO DAILY STEPHANIE PRN Reason: Protocol Last Admin: 04/17/17 10:37 Dose: 50 mg Atorvastatin Calcium (Lipitor) 10 mg PO DIN STEPHANIE PRN Reason: Protocol Last Admin: 04/17/17 17:48 Dose: 10 mg Famotidine (Pepcid) 40 mg PO HS STEPHANIE PRN Reason: Protocol Last Admin: 04/16/17 21:48 Dose: 40 mg Folic Acid (Folic Acid) 1 mg PO DAILY STEPHANIE PRN Reason: Protocol Last Admin: 04/17/17 10:37 Dose: 1 mg Guaifenesin/Dextromethorphan (Mucinex-Dm 600-30 Mg) 1 tab PO BID STEPHANIE PRN Reason: Protocol Last Admin: 04/17/17 17:48 Dose: 1 tab Methylprednisolone (Solu-Medrol) 30 mg IVP 0600,1400,2200 STEPHANIE PRN Reason: Protocol Last Admin: 04/17/17 14:39 Dose: 30 mg Nicotine (Nicoderm Cq) 1 patch TD DAILY STEPHANIE PRN Reason: Protocol Last Admin: 04/17/17 10:37 Dose: 1 patch Tramadol HCl (Ultram) 50 mg PO BID STEPHANIE PRN Reason: Protocol Last Admin: 04/17/17 17:39 Dose: 50 mg Trimethoprim/Sulfamethoxazole (Bactrim Ds Tab) 1 tab PO BID STEPHANIE PRN Reason: Protocol Last Admin: 04/17/17 17:48 Dose: 1 tab - Labs Labs: 04/14/17 06:00 - Constitutional Appears: Chronically Ill - Head Exam Head Exam: ATRAUMATIC, NORMAL INSPECTION, NORMOCEPHALIC - Eye Exam Eye Exam: EOMI, Normal appearance, PERRL - ENT Exam ENT Exam: Mucous Membranes Moist, Normal Exam Additional comments: very hard of hearing - Neck Exam Neck Exam: Full ROM, Normal Inspection. absent: Lymphadenopathy - Respiratory Exam Respiratory Exam: Decreased Breath Sounds, Rhonchi, Wheezes - Cardiovascular Exam Cardiovascular Exam: REGULAR RHYTHM, +S1, +S2, Murmur - GI/Abdominal Exam GI & Abdominal Exam: Soft, Normal Bowel Sounds. absent: Tenderness Additional comments: LLQ colostomy, C/D/I, - Extremities Exam Additional comments: bilateral above the knee amputation. stumps offloaded on pillows. - Neurological Exam Neurological Exam: Alert, Awake, Oriented x3 - Psychiatric Exam Psychiatric exam: Normal Affect, Normal Mood - Skin Skin Exam: Dry, Intact, Normal Color, Warm Assessment and Plan (1) Bronchitis Status: Acute (2) COPD exacerbation Status: Acute (3) Congestive heart failure Status: Acute (4) UTI (urinary tract infection) Status: Acute (5) Weakness Status: Acute (6) Leukocytosis Status: Acute (7) Anemia Status: Chronic - Assessment and Plan (Free Text) Plan: WBC still elevated. Urine cultures positive Kleb pneumoniae. Prescribed Bactrim PO. IV steroids. PT/OT onboard. GI/VTE prophylaxis Consults: Pulmonolgist = Dr. Samantha florian, IV and inhaled bronchodilator, HOB 45, diuretics PRN, nicoderm patch Reviewed: ECHO = EF 55%, mild - mod valvular aortic stenosis, mild-mo mitral regurg CXR = WNL CXR = COPD. No acute interval cardiopulmonary disease ECG = ABNORMAL Sinus tachycardia, L axis deviation, nonspecific ST abnormality
[2017-04-17 19:11] LABS: BASO # 0.01 K/mm3 (0.0-2.0); GRAN # 20.55 (1.4-6.5); GRAN % 96.4 % (50.0-68.0); HEMOGLOBIN 14.2 g/dL (14.0-18.0); LYMPH # 0.3 (1.2-3.4); LYMPH % 1.3 % (22.0-35.0); MEAN CELL VOLUME 94.7 fl (80.0-105.0); MEAN CORPUSCULAR HEMOGLOBIN 34.1 pg (25.0-35.0); MEAN CORPUSCULAR HGB CONC 35.9 g/dl (31.0-37.0); MEAN PLATELET VOLUME 8.7 fl (7.0-11.0); MONO # 0.5 (0.1-0.6); MONO % 2.3 % (1.0-6.0); PLATELET COUNT 389 10^3/uL (120.0-450.0); RBC 4.17 10^6/uL (3.5-6.1); RED CELL DISTRIBUTION WIDTH 13.1 % (11.5-14.5); WHITE BLOOD COUNT 21.3 10^3/ul (4.5-11.0)
[2017-04-17 20:09] LABS: LYMPHOCYTE 3 % (22.0-35.0); MONOCYTE 2 % (1.0-6.0); NEUTROPHIL 95 % (50.0-70.0)
[2017-04-18] MEDS: Albuterol-Ipratrop 3 mg / 0.5 (3 ml) UD IH SCH ×2 (01:18→09:08)
--- NOTE | 2017-04-18 04:06 | PN ---
DATE: 04/17/2017 PULMONARY PROGRESS NOTE REFERRING PHYSICIAN: Trish Hubbard MD SUBJECTIVE: The patient is sitting up on the wheelchair, feels okay, still having mild cough and sputum production. No nausea. No vomiting. No diarrhea. No leg pain. No leg swelling. OBJECTIVE: GENERAL: In no acute distress. VITAL SIGNS: Temperature is 98, heart rate is 67, respiratory rate is 18, blood pressure is 117/66, pulse oximetry is 97% on room air. HEENT: Moist mucous membranes. No ulcer or thrush noted. NECK: Supple. No JVD. LUNGS: Have a few scattered rhonchi, prolonged expiratory phase. HEART: S1 and S2. ABDOMEN: Soft, nontender. No organomegaly. EXTREMITIES: Bilateral AKA. NEUROLOGIC: Awake, alert, follows simple commands. MEDICATIONS: He is on Bactrim Double Strength one tab twice a day; Brovana inhaled twice a day; DuoNeb q.2 hours p.r.n., and q.6 hours [id number]; Ecotrin 81 mg daily; folic acid 1 mg daily; Lipitor 10 mg daily; Mucinex DM 600 mg twice a day; Nicoderm patch daily; Pepcid 40 mg nightly; Solu-Medrol 30 mg q. 8 hours; Tenormin 50 mg daily; Ultram 50 mg twice a day; Xanax 0.25 mg twice a day p.r.n. LABORATORY DATA: Shows hemoglobin 14.2, hematocrit 39.5, WBC 21.3, platelet count is 389. IMPRESSION AND PLAN: Chronic obstructive lung disease, active smoker, hypertension, peripheral vascular disease, status post bilateral above-knee amputation, mild heart failure with normal left ventricular function. From pulmonary point of view, doing okay, continue IV and inhaled bronchodilator, p.r.n. diuretics, low-salt diet, gastric prophylaxis, deep venous thrombosis prophylaxis. Thank you and we will follow with you. Donn Singh MD
[2017-04-18] MEDS: MethylPREDNISolone 40 mg Vial IVP SCH (05:05)
[2017-04-18 07:26] VITALS: BP 137/72; PULSE 68; TEMP 97.8; O2SAT 98
[2017-04-18] MEDS ORDERED: MethylPREDNISolone 40 mg Vial IVP SCH (08:46)
[2017-04-18] MEDS: Arformoterol 15 mcg/2 ml Inh Sol IH SCH (09:08)
[2017-04-18] MEDS: Tmp-Smz 800 mg-160 mg DS Tab PO SCH (10:01)
[2017-04-18] MEDS: guaiFENesin-DM 600-30 mg ER Tab PO SCH (10:02)
== END 2017-04-18 13:04 | disposition home or self-care (01) | DRG 191 ==
LOC: TRCU 17:05
PROVIDERS: ADMIT Internal Medicine; ATTEND Internal Medicine
PROC: F07M6ZZ Therapeutic Exercise Treatment of Musculoskeletal System - Whole Body (ICD-10-PCS; principal; 2017-04-14)
DX: J44.1 Chronic obstructive pulmonary disease with (acute) exacerbation (principal); N39.0 Urinary tract infection, site not specified; I11.0 Hypertensive heart disease with heart failure; D64.9 Anemia, unspecified; I50.9 Heart failure, unspecified; Z89.611 Acquired absence of right leg above knee; Z89.612 Acquired absence of left leg above knee; F17.200 Nicotine dependence, unspecified, uncomplicated; I73.9 Peripheral vascular disease, unspecified; H91.90 Unspecified hearing loss, unspecified ear; Z91.19 Patient's noncompliance with other medical treatment and regimen; Z93.3 Colostomy status

== ENCOUNTER 2018-05-24 13:28 | Inpatient (IN) | payer MEDICARE ==
[2018-05-24] MEDS ORDERED: Albuterol-Ipratrop 3 mg / 0.5 (3 ml) UD IH STA ×2 (14:01→15:33)
[2018-05-24 14:39] LABS: BASO # 0.01 K/mm3 (0.0-2.0); BASO % 0.1 % (0.0-3.0); EOS % 0.1 % (1.5-5.0); HEMOGLOBIN 14.7 g/dL (14.0-18.0); LYMPH % 5.2 % (22.0-35.0); MEAN CELL VOLUME 95.9 fl (80.0-105.0); MEAN CORPUSCULAR HEMOGLOBIN 33.2 pg (25.0-35.0); MEAN CORPUSCULAR HGB CONC 34.6 g/dl (31.0-37.0); MEAN PLATELET VOLUME 8.7 fl (7.0-11.0); MONO # 0.8 (0.1-0.6); MONO % 4.1 % (1.0-6.0); PLATELET COUNT 305 10^3/uL (120.0-450.0); RBC 4.43 10^6/uL (3.5-6.1); RED CELL DISTRIBUTION WIDTH 13.1 % (11.5-14.5); WHITE BLOOD COUNT 19.9 10^3/uL (4.5-11.0)
[2018-05-24 14:51] LABS: BLOOD UREA NITROGEN 15 mg/dL (7-21); CALCIUM 10.1 mg/dL (8.4-10.5); GFR NON-AFRICAN AMERICAN > 60
[2018-05-24 15:03] LABS: B-TYPE NATRIURETIC PEPTIDE 532 pg/mL (0-450); TROPONIN I < 0.01 ng/mL
[2018-05-24 15:10] LABS: ATYPICAL LYMPHOCYTE 2 % (0.0-0.0); LYMPHOCYTE 4 % (22.0-35.0); MONOCYTE 2 % (1.0-6.0); NEUTROPHIL 92 % (50.0-70.0)
[2018-05-24 15:11] LABS: ANISOCYTOSIS 1+; PLATELET ESTIMATE NORMAL (NORMAL)
--- NOTE | 2018-05-24 16:13 | ED PDOC ---
Arrival/HPI - General Chief Complaint: Shortness Of Breath Time Seen by Provider: 05/24/18 13:43 Historian: Patient - History of Present Illness Narrative History of Present Illness (Text): 05/24/18 16:13 A 78 year old male, whose past medical history includes COPD, bilateral AKA, presents to the emergency department complaining of shortness of breath. Patient reports takes inhaler and nebulizer treatment w/o any relief of his symptoms. Patient denies any fever, chills, nausea, vomiting, chest pain, or any other complaints at this time. Denies any recent steroids. Past Medical History - Provider Review Nursing Documentation Reviewed: Yes - Infectious Disease Hx of Infectious Diseases: None - Tetanus Immunization Tetanus Immunization: Unknown - Cardiac Hx Cardiac Disorders: Yes Hx Congestive Heart Failure: Yes Hx Hypertension: Yes - Pulmonary Hx Respiratory Disorders: Yes Hx Chronic Obstructive Pulmonary Disease (COPD): Yes - Neurological Hx Neurological Disorder: No - HEENT Hx HEENT Disorder: Yes Hx Deafness: Yes - Renal Hx Renal Disorder: No - Endocrine/Metabolic Hx Endocrine Disorders: No - Hematological/Oncological Hx Blood Disorders: No - Integumentary Hx Dermatological Disorder: Yes Hx Cellulitis: Yes - Musculoskeletal/Rheumatological Hx Musculoskeletal Disorders: Yes Other/Comment: AMPUTEE - Gastrointestinal Hx Gastrointestinal Disorders: Yes Hx Colostomy: Yes - Genitourinary/Gynecological Hx Genitourinary Disorders: Yes Hx Urinary Tract Infection: Yes - Psychiatric Hx Psychophysiologic Disorder: Yes Hx Substance Use: No - Surgical History Hx Amputation: Yes Other/Comment: colostomy - Anesthesia Hx Anesthesia: Yes Hx Anesthesia Reactions: No Hx Malignant Hyperthermia: No - Suicidal Assessment Feels Threatened In Home Enviroment: No Family/Social History - Physician Review Nursing Documentation Reviewed: Yes Family/Social History: No Known Family HX Smoking Status: Heavy Smoker > 10 Cigarettes Daily Hx Alcohol Use: Yes Hx Substance Use: No Hx Substance Use Treatment: No Allergies/Home Meds Allergies/Adverse Reactions: Allergies No Known Allergies Allergy (Verified 05/24/18 20:17) Home Medications: Home Meds Medication Instructions Recorded Confirmed RX: Aspirin [Low Dose Aspirin EC] 81 mg PO DAILY 04/13/17 05/24/18 RX: Atenolol [Tenormin] 50 mg PO DAILY 04/13/17 05/24/18 Review of Systems - Physician Review All systems were reviewed & negative as marked: Yes - Review of Systems Constitutional: absent: Fevers, Night Sweats Respiratory: SOB Cardiovascular: absent: Chest Pain Gastrointestinal: absent: Nausea, Vomiting Physical Exam Vital Signs Reviewed: Yes Vital Signs Temp Pulse Resp BP Pulse Ox 05/24/18 15:26 88 20 115/70 98 05/24/18 13:35 98.6 F 90 24 144/93 H 90 L Temperature: Afebrile Blood Pressure: Normal Pulse: Regular Respiratory Rate: Normal Appearance: Positive for: Well-Appearing, Non-Toxic, Comfortable Pain Distress: None Mental Status: Positive for: Alert and Oriented X 3 - Systems Exam Head: Present: Atraumatic, Normocephalic Pupils: Present: PERRL Extroacular Muscles: Present: EOMI Conjunctiva: Present: Normal Mouth: Present: Moist Mucous Membranes Neck: Present: Normal Range of Motion Respiratory/Chest: Present: Wheezes (expiratory), Decreased Breath Sounds (bilaterally), Rhonchi (diffused rhonchi bilaterally) Cardiovascular: Present: Regular Rate and Rhythm, Normal S1, S2. No: Murmurs Abdomen: Present: Other (colostomy filled with air and stool). No: Tenderness, Distention, Peritoneal Signs Back: Present: Normal Inspection Upper Extremity: Present: Normal Inspection. No: Cyanosis, Edema Lower Extremity: Present: Other (bilateraly AKA.) Neurological: Present: GCS=15, CN II-XII Intact, Speech Normal Skin: Present: Warm, Dry, Normal Color. No: Rashes Psychiatric: Present: Alert, Oriented x 3, Normal Insight, Normal Concentration Medical Decision Making ED Course and Treatment: 05/24/18 16:20 Impression: 78 year old male with shortness of breath. Plan: -- EKG -- CXR -- Labs -- Duoneb -- SOLU-Medrol -- Reassess and disposition Progress Notes: 05/24/18 Patient reassessed after breathing treatments and steroid, lung sounds not improved and patient states he does not feel any better. Plan admit for further evaluation and management. Patient agreeable w/POC. 16:35 Case d/w Dr. Hubbard who accepts patient to her service. - Lab Interpretations Lab Results: Troponin I < 0.01 ng/mL D 05/24/18 14:33 NT-Pro-B Natriuret Pep 532 pg/mL (0-450) H 05/24/18 14:33 - RAD Interpretation Radiology Orders: 05/24/18 14:02 CHEST PORTABLE [RAD] Stat - Medication Orders Current Medication Orders: Discontinued Medications Albuterol/Ipratropium (Duoneb 3 Mg/0.5 Mg (3 Ml) Ud) 3 ml IH STAT STA Stop: 05/24/18 14:02 Last Admin: 05/24/18 14:07 Dose: 3 ml Albuterol/Ipratropium (Duoneb 3 Mg/0.5 Mg (3 Ml) Ud) 3 ml IH STAT STA Stop: 05/24/18 15:34 Methylprednisolone (Solu-Medrol) 125 mg IVP STAT STA Stop: 05/24/18 14:02 Last Admin: 05/24/18 14:07 Dose: 125 mg IVP Administration Document 05/24/18 14:07 HANANE (Rec: 05/24/18 14:07 HANANE [id number]) Charges for Administration # of IVP Administrations 1 - Scribe Statement The provider has reviewed the documentation as recorded by the Maria Fernanda Be Provider Scribe Attestation: All medical record entries made by the Scribe were at my direction and personall y dictated by me. I have reviewed the chart and agree that the record accurately reflects my personal performance of the history, physical exam, medical decision making, and the department course for this patient. I have also personally directed, reviewed, and agree with the discharge instructions and disposition. Disposition/Present on Arrival - Present on Arrival Any Indicators Present on Arrival: No History of DVT/PE: No History of Uncontrolled Diabetes: No Urinary Catheter: No History of Decub. Ulcer: No History Surgical Site Infection Following: None - Disposition Have Diagnosis and Disposition been Completed?: Yes Diagnosis: COPD exacerbation Disposition: HOSPITALIZED Disposition Time: 16:35 Patient Plan: Admission Condition: STABLE
[2018-05-24] MEDS ORDERED: Azithromycin 500MG/NS 250ml 500 MG/250 ML BAG IVPB STA (16:38)
[2018-05-24] MEDS ORDERED: cefTRIAXone 1 GM/100 ML BAG IVPB STA (16:46)
--- NOTE | 2018-05-24 17:02 | RAD ---
Date of service: 05/24/2018 HISTORY: sob COMPARISON: Comparison chest 04/10/2017 FINDINGS: LUNGS: Lung logan are hyperinflated with flattened diaphragms with blunting both CP angles possibly due to chronic pleural thickening. Findings consistent with chronic manifestations of COPD.. Minimal linear scarring both lung bases the PLEURA: No significant pleural effusion identified, no pneumothorax apparent. CARDIOVASCULAR: No aortic atherosclerotic calcification present. Normal cardiac size. No pulmonary vascular congestion. OSSEOUS STRUCTURES: Several old healed left posterior rib fractures are again noted VISUALIZED UPPER ABDOMEN: Normal. OTHER FINDINGS: None. IMPRESSION: Chronic changes of COPD. Suspect chronic pleural thickening both CP angles. Minimal linear scarring both lung bases
[2018-05-24 18:39] LABS: HDL CHOLESTEROL 78 mg/dL (29-60); IRON 79 ug/dL (45-180)
[2018-05-24 18:50] LABS: % IRON SATURATION 23 % (20-55); LDL CHOLESTEROL 66 mg/dL (0-129); TOTAL IRON BINDING CAPACITY 349 ug/dL (261-462)
[2018-05-24] MEDS: MethylPREDNISolone 40 mg Vial IVP SCH (21:03)
[2018-05-24] MEDS: Albuterol-Ipratrop 3 mg / 0.5 (3 ml) UD IH SCH (21:04)
[2018-05-25] MEDS: Albuterol-Ipratrop 3 mg / 0.5 (3 ml) UD IH SCH ×4 (02:30→23:26)
[2018-05-25 06:15] VITALS: RESP 18
[2018-05-25 06:20] LABS: MEAN CELL VOLUME 96.7 fl (80.0-105.0); MEAN CORPUSCULAR HEMOGLOBIN 32.9 pg (25.0-35.0); MEAN CORPUSCULAR HGB CONC 34.1 g/dl (31.0-37.0); RBC 4.25 10^6/uL (3.5-6.1); RED CELL DISTRIBUTION WIDTH 13.3 % (11.5-14.5)
[2018-05-25 06:31] LABS: BLOOD UREA NITROGEN 14 mg/dL (7-21); CALCIUM 9.6 mg/dL (8.4-10.5); GFR NON-AFRICAN AMERICAN > 60
[2018-05-25] MEDS: Benzocaine/Menthol (Cepacol) Lozenge MT PRN (07:03)
--- NOTE | 2018-05-25 08:52 | CARD ---
APPROVED REPORT Date of service: 05/24/2018 EKG Measurement Heart [id number] <Conclusion> Sinus rhythm with fusion complexes Otherwise normal ECG
[2018-05-25] MEDS ORDERED: Azithromycin 500 MG in Sodium Chloride 0.9% 250 ML IVPB SCH (10:00)
[2018-05-25] MEDS: cefTRIAXone 1 gm 1 GM/100 ML BAG IVPB SCH (10:04)
[2018-05-25] MEDS: MethylPREDNISolone 40 mg Vial IVP SCH ×2 (10:05→23:34)
[2018-05-25 13:12] LABS: FOLATE > 20.0 ng/mL
[2018-05-25 14:32] VITALS: BMI 26.7
[2018-05-25] MEDS: Azithromycin 500MG/NS 250ml 500 MG/250 ML BAG IVPB SCH (15:47)
--- NOTE | 2018-05-25 20:39 | CP.PCM.CON ---
History of Present Illness - History of Present Illness History of Present Illness: General Surgery Consult Re: Colostomy dysfunction HPI: 78M presented to ED 05/24/18 due to SOB from COPD exacerbation. Surgery was consulted once his ostomy prolapsed. Per pt this happens often and can be reduced and does not cause pain. He [facility] and [facility] related issues as long as there is not an emergent problem. When the ostomy prolapses, it is still functional, and he denies any bloody output. PMH: COPD, PVD, emphysema, HTN, Partial deafness PSH: B/L AKAs, Loop colostomy SH: Hx of heavy smoking and EtOH use, denies street drugs FH: noncontributory All: NKDA Meds: See MAR Review of Systems - Review of Systems All systems: reviewed and no additional remarkable complaints except (as per HPI) Past Patient History - Infectious Disease Hx of Infectious Diseases: None - Tetanus Immunizations Tetanus Immunization: Unknown - Past Social History Smoking Status: Heavy Smoker > 10 Cigarettes Daily - CARDIAC Hx Cardiac Disorders: Yes Hx Congestive Heart Failure: Yes Hx Hypertension: Yes - PULMONARY Hx Respiratory Disorders: Yes Hx Chronic Obstructive Pulmonary Disease (COPD): Yes - NEUROLOGICAL Hx Neurological Disorder: No - HEENT Hx HEENT Problems: Yes Hx Deafness: Yes - RENAL Hx Chronic Kidney Disease: No - ENDOCRINE/METABOLIC Hx Endocrine Disorders: No - HEMATOLOGICAL/ONCOLOGICAL Hx Blood Disorders: No - INTEGUMENTARY Hx Dermatological Problems: Yes Hx Cellulitis: Yes - MUSCULOSKELETAL/RHEUMATOLOGICAL Hx Musculoskeletal Disorders: Yes Other/Comment: AMPUTEE - GASTROINTESTINAL Hx Gastrointestinal Disorders: Yes Hx Colostomy: Yes - GENITOURINARY/GYNECOLOGICAL Hx Genitourinary Disorders: Yes Hx Urinary Tract Infection: Yes - PSYCHIATRIC Hx Psychophysiologic Disorder: Yes Hx Substance Use: No - SURGICAL HISTORY Hx Amputation: Yes Other/Comment: colostomy - ANESTHESIA Hx Anesthesia: Yes Hx Anesthesia Reactions: No Hx Malignant Hyperthermia: No Meds Allergies/Adverse Reactions: Allergies Allergy/AdvReac Type Severity Reaction Status Date / Time No Known Allergies Allergy Verified 05/24/18 20:17 - Medications Medications: Current Medications Acetaminophen (Tylenol 325mg Tab) 650 mg PO Q4H PRN PRN Reason: pain fever Acetylcysteine (Acetylcysteine 20%) 4 ml IH BIDRESP STEPHANIE Albuterol/Ipratropium (Duoneb 3 Mg/0.5 Mg (3 Ml) Ud) 3 ml IH [id number] [facility] Last Admin: 05/25/18 15:47 Dose: Not Given Aspirin (Ecotrin) 81 mg PO DAILY [facility] Last Admin: 05/25/18 10:03 Dose: 81 mg Atenolol (Tenormin) 50 mg PO DAILY [facility] Last Admin: 05/25/18 15:47 Dose: 50 mg Benzocaine/Menthol (Cepacol Sore Throat) 1 heather MT Q4H PRN PRN Reason: Sore Throat Last Admin: 05/25/18 07:03 Dose: 1 heather Budesonide (Pulmicort Respules) 0.25 mg IH [id number] [facility] Famotidine (Pepcid) 20 mg PO [facility] Last Admin: 05/24/18 21:04 Dose: 20 mg Ceftriaxone Sodium (Rocephin 1 Gram Ivpb) 1 gm in 100 mls @ 100 mls/hr IVPB DAILY [facility]; Protocol Last Admin: 05/25/18 10:04 Dose: 100 mls/hr Azithromycin (Zithromax 500mg In Ns) 500 mg in 250 mls @ 167 mls/hr IVPB DAILY [facility] Last Admin: 05/25/18 15:47 Dose: 167 mls/hr Loratadine (Claritin) 10 mg PO DAILY [facility] Last Admin: 05/25/18 10:03 Dose: 10 mg Methylprednisolone (Solu-Medrol) 40 mg IVP Q12 [facility] Last Admin: 05/25/18 10:05 Dose: 40 mg Montelukast Sodium (Singulair) 10 mg PO [facility] Last Admin: 05/24/18 21:03 Dose: 10 mg Nicotine (Nicoderm Cq) 1 patch TD DAILY [facility] Ondansetron HCl (Zofran Inj) 4 mg IVP Q6 PRN PRN Reason: Nausea/Vomiting Physical Exam - Constitutional Appears: Non-toxic, No Acute Distress - Head Exam Head Exam: ATRAUMATIC, NORMOCEPHALIC - Eye Exam Eye Exam: EOMI. absent: Scleral icterus - ENT Exam ENT Exam: Mucous Membranes Moist Additional comments: trachea midline - Neck Exam Neck exam: Negative for: Lymphadenopathy, Tenderness - Respiratory Exam Respiratory Exam: NORMAL BREATHING PATTERN. absent: Accessory Muscle Use, Respiratory Distress - GI/Abdominal Exam GI & Abdominal Exam: Hernia (large parastomal hernia), Soft. absent: Distended, Firm, Guarding, Rebound, Rigid, Tenderness Additional comments: freely reducible loop colostomy prolapse excoriated tissue around ostomy site para stomal hernia Reducible L inguinal hernia - Rectal Exam Rectal Exam: Deferred - Extremities Exam Extremities exam: Positive for: normal capillary refill Additional comments: b/l aka - Back Exam Back exam: absent: CVA tenderness (L), CVA tenderness (R) - Neurological Exam Neurological exam: Alert, Oriented x3 - Psychiatric Exam Psychiatric exam: Normal Affect, Normal Mood - Skin Skin Exam: Dry, Warm Results - Vital Signs Recent Vital Signs: Last Vital Signs Temp 98.0 F 05/25/18 12:00 Pulse 86 05/25/18 17:54 Resp 18 05/25/18 17:54 BP 111/84 05/25/18 17:54 Pulse Ox 100 05/25/18 17:54 - Labs Result Diagrams: 05/25/18 06:00 05/25/18 06:00 Labs: Laboratory Results - last 24 hr 05/24/18 05/24/18 05/25/18 18:17 18:17 06:00 WBC 13.0 H D RBC 4.25 Hgb 14.0 Hct 41.1 L MCV 96.7 MCH 32.9 MCHC 34.1 RDW 13.3 Plt Count 283 MPV 9.0 Sodium Potassium Chloride Carbon Dioxide Anion Gap BUN Creatinine Est GFR ( Amer) Est GFR (Non-Af Amer) Random Glucose Hemoglobin A1c 5.2 Calcium Vitamin B12 554 Folate > 20.0 TSH 3rd Generation 05/25/18 05/25/18 06:00 06:00 WBC RBC Hgb Hct MCV MCH MCHC RDW Plt Count MPV Sodium 137 Potassium 4.2 Chloride 101 Carbon Dioxide 28 Anion Gap 12 BUN 14 Creatinine 0.7 L Est GFR ( Amer) > 60 Est GFR (Non-Af Amer) > 60 Random Glucose 127 H Hemoglobin A1c Calcium 9.6 Vitamin B12 Folate TSH 3rd Generation 0.51 Assessment & Plan - Assessment and Plan (Free Text) Assessment: 78M with prolapse of loop colostomy and parastomal hernia. Reducible L inguinal hernia Plan: Call if ostomy causing pain when prolapsed or parastomal hernia cannot be reduced. [facility], he just has difficulty getting a ride there. No surgical intervention planned at this time. D/W Dr. Xavier Tripathi PGY4
--- NOTE | 2018-05-25 21:14 | PN ---
DATE: 05/25/2018 SUBJECTIVE: The patient was seen and examined at the bedside on 05/25/2018. Looking comfortable. I saw the patient in the ER, isolation. No fever. No chills. No hematuria. No hematochezia. Still coughing with shortness of breath. Feeling irritation in the throat. PHYSICAL EXAMINATION: VITAL SIGNS: Temperature 98, pulse 91, blood pressure 132/79, respiratory rate 18. HEENT: Head is normocephalic and atraumatic. Eyes; PERRLA. Extraocular muscles intact. Conjunctivae clear. Nose patent. Mucous membranes moist. NECK: Supple. No carotid bruits. No JVD or thyromegaly. CHEST: Bilaterally symmetrical. HEART: S1 and S2 positive. LUNG: Positive wheezing bilaterally. ABDOMEN: Soft. Bowel sounds present. No organomegaly. EXTREMITIES: Upper extremities; no edema, no cyanosis. Lower extremities; has amputation. NEUROLOGIC: The patient is awake, alert. Moving all 4 extremities. No focal deficits. MEDICATIONS: Acetylcysteine, Cepacol lozenges, Claritin, Duoneb, Ecotrin, Nicoderm patch, Pepcid, Pulmicort, Rocephin, Singulair, Solu-Medrol, atenolol, Tylenol, Zithromax, and Zofran. LABORATORY DATA: White blood cell is 13, on admission it was 19.9; hemoglobin 14; hematocrit 41.1; platelets of 283. Sodium 137, potassium 4.2, BUN 40, and creatinine 0.7. Glucose 127. FAMILY HISTORY: Father and mother, noncontributory. HABITS: Smoking, heavy more than 10 cigarettes a day. Alcohol, he has. Substance abuse, no. ALLERGIES: THE PATIENT IS NOT ALLERGIC TO ANY MEDICATIONS. ASSESSMENT AND PLAN: Mr. Toro Romeo, a 78 years old male with hyperglycemia, BNP is high rule out congestive heart failure, leucocytosis, and history of chronic obstructive pulmonary disease, bilateral [id number] amputation came who came in with shortness of breath, history of hypertension, congestive heart failure, deafness, cellulitis, history of colostomy. Discussion with Dr. Singh. Nicotine patch given for smoking. Last hemodialysis started, on [place] dialysis. Getting Cepacol lozenges, Claritin, albuterol, aspirin, Pepcid for gastrointestinal prophylaxis, antibiotics. Steroids given, we will soon taper down. Repeat labs. We will follow up. Trish Hubbard MD [facility]
--- NOTE | 2018-05-26 03:30 | CON ---
DATE: 05/25/2018 REFERRING PHYSICIAN: Trish Hubbard MD REASON FOR CONSULT: Chronic lung disease, cough, shortness of breath. HISTORY OF PRESENT ILLNESS: This is a 78 years old gentleman, known to me from his previous admission about a year ago. Otherwise, noncompliant with followup. Known history of chronic obstructive lung disease, peripheral vascular disease, has bilateral AKA, history of laparotomy in the remote past, has a colostomy. There is also history of mild heart failure, came in with cough, shortness of breath. No nausea, no vomiting, no diarrhea. Colostomy working well. Denied any sick exposure. PAST MEDICAL HISTORY: As per history of present illness. ALLERGIES: NONE KNOWN. SOCIAL HISTORY: He is a smoker. Denied any alcohol use. FAMILY HISTORY: No significant cardiopulmonary disease reported. MEDICATIONS: He is on Cepacol lozenges every 4 hours p.r.n., Claritin 10 mg daily, DuoNeb every 6 hours, Ecotrin 81 mg daily, Pepcid 20 mg daily, Rocephin 1 g IV daily, Singulair 10 mg daily, Solu-Medrol 40 mg every 12 hours, Tenormin 50 mg daily, Tylenol p.r.n. basis, Zithromax 500 mg daily. REVIEW OF SYSTEMS: No headache, no rhinitis. Has cough, shortness of breath, wheezing. No nausea, no vomiting, no diarrhea. Stumps are good. PHYSICAL EXAMINATION: GENERAL: Mild distress secondary to cough. VITAL SIGNS: Temp is 98, heart rate is 80, respiratory rate is 18, blood pressure 132/79, pulse ox 100%, 2 liters nasal cannula. HEENT: Moist mucous membrane. Crowded airway. Mallampati score 4. NECK: Supple. No JVD. LUNGS: Bilateral diffuse expiratory wheezing. HEART: S1 and S2. ABDOMEN: Soft, nontender, nondistended. Colostomy working well. EXTREMITIES: Bilateral stumps, look okay. NEUROLOGIC: Awake and follows simple commands. LABORATORY DATA: Shows hemoglobin 14, hematocrit 41.1, WBC 13,000, platelet is 283. INR 1.1, PTT is 31 from last year. Sodium 137, potassium 4.2, chloride 101, bicarbonate is 28, BUN 14, creatinine 0.7. Hemoglobin A1c 5.2. Calcium is 9.6. Iron is 79. LDH 477. Troponin negative. ProBNP 532. Cholesterol 166. Vitamin B12 of 555. Folate over 20. TSH 0.5. Chest x-ray shows chronic changes consistent with COPD, suspected chronic pleural thickening with CP angle, bases have fibrosis. IMPRESSION AND PLAN: Chronic obstructive lung disease, active smoker, hypertension, peripheral vascular disease, history of above-knee amputation, both lower extremities. The patient is urged to stop smoking. Case discussed with Dr. Hubbard. I agree with the present treatment. Continue IV and inhaled bronchodilator. Continue antibiotics. Colostomy care. Gastric and DVT prophylaxis. The patient is urged to stop smoking. We will place Nicoderm patch. Thank you and we will follow with you. Donn Singh MD
--- NOTE | 2018-05-26 08:21 | HP ---
DATE OF EXAM: 05/24/2018 The patient was seen and examined at bedside on 05/24/2018 in the late evening in the emergency room. CHIEF COMPLAINT: Shortness of breath. HISTORY OF PRESENT ILLNESS: a 78-year-old male with past medical history of COPD, bilateral AKA, came to the emergency department complaining of shortness of breath. The patient reports taking inhalers and nebulizer treatment without any relief of his symptoms. No fever. No chills. No nausea, vomiting, or diarrhea. No hematuria. No hematochezia. No headache or dizziness. No chest pain. No palpitation. PAST MEDICAL HISTORY: As above. Congestive heart failure, hypertension, COPD, deafness, amputation of both legs, colostomy, and history of urinary tract infection. FAMILY HISTORY: Father and mother noncontributory. HABITS: Smoking more than 10 cigarettes a day. Alcohol, yes. Substance abuse, no. ALLERGIES: THE PATIENT IS NOT ALLERGIC WITH ANY MEDICATIONS. HOME MEDICATIONS: Aspirin, atenolol, and inhalers. REVIEW OF SYSTEMS: The patient was seen and examined at the bedside in ER, looking comfortable,still coughing, shortness of breath, and wheezing. No chest pain. No abdominal pain. No nausea, vomiting, or diarrhea. No hematuria or hematochezia. No headache or dizziness. PHYSICAL EXAMINATION: VITAL SIGNS: Temperature 98.6, pulse 90, respiratory rate 24, blood pressure 144/93, and pulse oximetry 90. HEENT: Head; normocephalic and atraumatic. Eyes; PERRLA. Extraocular muscles intact. Conjunctivae clear. Nose patent. Mucous membrane moist. NECK: Supple. No carotid bruits. No JVD or thyromegaly. CHEST: Bilaterally symmetrical. HEART: S1 and S2 positive. LUNGS: Positive wheezing bilaterally. Decreased breath sounds bilaterally. Diffused rhonchi bilaterally. ABDOMEN: Soft. Bowel sounds present. No organomegaly. Colostomy bag filled with air and stool. No tenderness. No distention. No peritoneal signs. EXTREMITIES: Upper extremity, no edema and no cyanosis. Lower extremities, bilateral AKA. NEUROLOGIC: The patient is awake, alert, and moving all 4 extremities. No focal deficits. LABORATORY DATA: Troponin is less than 0.01. BNP 532. White blood cell 19.9, hemoglobin 14.7, hematocrit 42.5, and platelets 305. Sodium 135, potassium 4, BUN 15, and creatinine 0.8. B12 is 554. ASSESSMENT AND PLAN: a 78-year-old male with leukocytosis, increased BNP, rule out congestive heart failure, and admitted with exacerbation of chronic obstructive pulmonary disease. Has colostomy bag. History of hypertension and bilateral above-knee amputation. We started steroids and nebulizer treatment. Call consult with Pulmonary, started antibiotics, and atenolol for hypertension. Singulair and Zyrtec given. Pepcid for gastrointestinal prophylaxis. Repeat labs. We will follow up. Trish Hubbard MD MTDJose A
[2018-05-26] MEDS: Benzocaine/Menthol (Cepacol) Lozenge MT PRN (09:57)
[2018-05-26] MEDS: MethylPREDNISolone 40 mg Vial IVP SCH ×2 (09:57→21:36)
[2018-05-26] MEDS: cefTRIAXone 1 gm 1 GM/100 ML BAG IVPB SCH (09:58)
[2018-05-26] MEDS: Azithromycin 500MG/NS 250ml 500 MG/250 ML BAG IVPB SCH (09:59)
--- NOTE | 2018-05-26 13:12 | PN ---
DATE: 05/26/2018 PULMONARY PROGRESS NOTE REFERRING PHYSICIAN: Trish Hubbard MD. SUBJECTIVE: The patient is lying in bed. No acute distress. No overnight events reported. No headache, rhinitis, chest pain, abdominal pain, nausea or vomiting reported. The patient does report improvement in cough and shortness of breath. OBJECTIVE: GENERAL: No acute distress. VITAL SIGNS: Blood pressure 134/56, pulse 88, oxygen saturation 100% on nasal cannula, afebrile. HEENT: Moist mucous membranes. Crowded airway. Mallampati score 4. NECK: Supple. No JVD. LUNGS: Fair air flow bilaterally. CARDIOVASCULAR: S1 and S2. ABDOMEN: Soft and nontender. No distention. Colostomy with liquid stool. EXTREMITIES: Bilateral stumps. NEUROLOGIC: Awake, alert, and verbal. Follows commands. MEDICATIONS: Reviewed. Tylenol 650 every 4 hours p.r.n. for fever or pain, Mucomyst 4 mL inhalation twice a day, DuoNeb 3 mL inhalation every 6 hours, aspirin 81 mg daily, atenolol 50 mg daily, Zithromax 500 mg daily, Cepacol throat lozenges every 4 hours p.r.n., Pulmicort 0.25 mg inhalation every 12 hours, Rocephin 1 g daily, Pepcid 20 mg at bedtime, loratadine, Claritin 10 mg daily, Solu-Medrol 40 mg intravenous push every 12 hours, Singulair 10 mg at bedtime, nicotine patch transdermal daily, Zofran 4 mg intravenous push every 6 hours p.r.n. LABORATORY DATA: Blood cultures preliminary, no growth after 24 hours. IMPRESSION AND PLAN: Chronic obstructive lung disease, active smoker, hypertension, peripheral vascular disease, history of above-knee amputation bilaterally. Continue intravenous and inhaled bronchodilators, antibiotic therapy, gastric prophylaxis. Continue Nicoderm patch. Continue to encourage smoking cessation. The patient currently on isolation precautions for bedbugs. This patient was seen and examined with Dr. Singh. Discussed assessment and plan as described above. This patient was seen and examined by Juan F Mondragon, nurse practitioner. Discussed assessment and plan as described above. Thank you for this consult. We will follow with you. Juan F Mondragon APN Donn Singh MD [facility] # [id number]
[2018-05-26] MEDS: Albuterol-Ipratrop 3 mg / 0.5 (3 ml) UD IH SCH ×2 (13:20→20:10)
[2018-05-26] MEDS: Promethazine 6.25 MG/5 ML CUP PO PRN (18:08)
--- NOTE | 2018-05-26 19:29 | CP.PCM.CON ---
<Giles Gomez - Last Filed: 05/26/18 19:31> History of Present Illness - History of Present Illness History of Present Illness: PGY5 GI Consult Note Ousmane Engel is a 78M presented to ED 05/24/18 due to SOB for COPD exacerbation. GI was consulted for malfunctioning ostomy. General surgery already evaluated the pt for mary-ostomy hernia. Per pt this happens often and can be reduced and does not cause pain. He said he usually follows up at the [place] where the [facility] [facility] and he wants to go back to the [place] for any ostomy related issues as long as there is not an emergent problem. Pt still notes stool oupt from the ostomy. Denies any abd pain, blooding, nausea or vomiting. Ostomy was placed for unknown reason (pt was not aware of indication). PMH: COPD, PVD, emphysema, HTN, Partial deafness PSH: B/L AKAs, Loop colostomy SH: Hx of heavy smoking and EtOH use, denies street drugs FH: noncontributory Endo hx: unknown Past Patient History - Infectious Disease Hx of Infectious Diseases: None - Tetanus Immunizations Tetanus Immunization: Unknown - Past Social History Smoking Status: Heavy Smoker > 10 Cigarettes Daily - CARDIAC Hx Cardiac Disorders: Yes Hx Congestive Heart Failure: Yes Hx Hypertension: Yes - PULMONARY Hx Respiratory Disorders: Yes Hx Chronic Obstructive Pulmonary Disease (COPD): Yes - NEUROLOGICAL Hx Neurological Disorder: No - HEENT Hx HEENT Problems: Yes Hx Deafness: Yes - RENAL Hx Chronic Kidney Disease: No - ENDOCRINE/METABOLIC Hx Endocrine Disorders: No - HEMATOLOGICAL/ONCOLOGICAL Hx Blood Disorders: No - INTEGUMENTARY Hx Dermatological Problems: Yes Hx Cellulitis: Yes - MUSCULOSKELETAL/RHEUMATOLOGICAL Hx Musculoskeletal Disorders: Yes Other/Comment: AMPUTEE - GASTROINTESTINAL Hx Gastrointestinal Disorders: Yes Hx Colostomy: Yes - GENITOURINARY/GYNECOLOGICAL Hx Genitourinary Disorders: Yes Hx Urinary Tract Infection: Yes - PSYCHIATRIC Hx Psychophysiologic Disorder: Yes Hx Substance Use: No - SURGICAL HISTORY Hx Amputation: Yes Other/Comment: colostomy - ANESTHESIA Hx Anesthesia: Yes Hx Anesthesia Reactions: No Hx Malignant Hyperthermia: No Meds Allergies/Adverse Reactions: Allergies Allergy/AdvReac Type Severity Reaction Status Date / Time No Known Allergies Allergy Verified 05/24/18 20:17 - Medications Medications: Current Medications Acetaminophen (Tylenol 325mg Tab) 650 mg PO Q4H PRN PRN Reason: pain fever Acetylcysteine (Acetylcysteine 20%) 4 ml IH BIDRESP [facility] Albuterol/Ipratropium (Duoneb 3 Mg/0.5 Mg (3 Ml) Ud) 3 ml IH [id number] [facility] Last Admin: 05/26/18 13:20 Dose: 3 ml Aspirin (Ecotrin) 81 mg PO DAILY [facility] Last Admin: 05/26/18 09:57 Dose: 81 mg Atenolol (Tenormin) 50 mg PO DAILY [facility] Last Admin: 05/26/18 10:00 Dose: 50 mg Azithromycin (Zithromax) 500 mg PO DAILY [facility] Benzocaine/Menthol (Cepacol Sore Throat) 1 heather MT Q4H PRN PRN Reason: Sore Throat Last Admin: 05/26/18 09:57 Dose: 1 heather Budesonide (Pulmicort Respules) 0.25 mg IH [id number] [facility] Enoxaparin Sodium (Lovenox) 30 mg SC DAILY [facility]; Protocol Famotidine (Pepcid) 20 mg PO HS [facility] Last Admin: 05/25/18 23:35 Dose: 20 mg Ceftriaxone Sodium (Rocephin 1 Gram Ivpb) 1 gm in 100 mls @ 100 mls/hr IVPB DAILY [facility]; Protocol Stop: 05/29/18 10:59 Last Admin: 05/26/18 09:58 Dose: 100 mls/hr Loratadine (Claritin) 10 mg PO DAILY [facility] Last Admin: 05/26/18 09:58 Dose: 10 mg Methylprednisolone (Solu-Medrol) 40 mg IVP Q12 [facility] Last Admin: 05/26/18 09:57 Dose: 40 mg Montelukast Sodium (Singulair) 10 mg PO HS [facility] Last Admin: 05/25/18 23:34 Dose: 10 mg Nicotine (Nicoderm Cq) 1 patch TD DAILY [facility] Last Admin: 05/26/18 09:58 Dose: 1 patch Ondansetron HCl (Zofran Inj) 4 mg IVP Q6 PRN PRN Reason: Nausea/Vomiting Promethazine HCl (Phenergan Syrup) 6.25 mg PO TID PRN PRN Reason: Cough Last Admin: 05/26/18 18:08 Dose: 6.25 mg Physical Exam - Constitutional Appears: Non-toxic, No Acute Distress - Head Exam Head Exam: ATRAUMATIC, NORMOCEPHALIC - Eye Exam Eye Exam: Normal appearance - ENT Exam ENT Exam: Mucous Membranes Moist, Normal Exam - Neck Exam Neck exam: Positive for: Normal Inspection - Respiratory Exam Respiratory Exam: Clear to Auscultation Bilateral, NORMAL BREATHING PATTERN. absent: Rales, Rhonchi, Wheezes, Respiratory Distress - Cardiovascular Exam Cardiovascular Exam: REGULAR RHYTHM, +S1, +S2 - GI/Abdominal Exam Additional comments: bowel prolapse around the ostomy; ostomy pink; brown stool in bag - Extremities Exam Extremities exam: Negative for: joint swelling, pedal edema Additional comments: b/L AKA - Neurological Exam Neurological exam: Alert, Oriented x3 - Psychiatric Exam Psychiatric exam: Normal Affect, Normal Mood - Skin Skin Exam: Dry, Intact, Normal Color, Warm Results - Vital Signs Recent Vital Signs: Last Vital Signs Temp 98.0 F 05/25/18 12:00 Pulse 89 05/26/18 13:32 Resp 18 05/25/18 17:54 BP 134/56 L 05/26/18 10:00 Pulse Ox 100 05/25/18 17:54 - Labs Result Diagrams: 05/25/18 06:00 05/25/18 06:00 Labs: Laboratory Results - last 24 hr 05/26/18 07:00 Procalcitonin < 0.05 L Assessment & Plan - Assessment and Plan (Free Text) Assessment: Ousmane Engel is a 78M presented to ED 05/24/18 due to SOB for COPD exacerbation. Mary-ostomy hernia, non-incarcerated Ostomy hx of AKA COPD exacerbation Plan: -[facility] -no indication for endoscopic eval -recommendations as per surgery -rest of care as per primary team for exacerbation D/w Dr. Watson <Micky Watson V - Last Filed: 05/27/18 23:12> Meds - Medications Medications: Current Medications Acetaminophen (Tylenol 325mg Tab) 650 mg PO Q4H PRN PRN Reason: pain fever Acetylcysteine (Acetylcysteine 20%) 4 ml IH BIDRESP [facility] Last Admin: 05/27/18 19:41 Dose: 4 ml Albuterol/Ipratropium (Duoneb 3 Mg/0.5 Mg (3 Ml) Ud) 3 ml IH [id number] [facility] Last Admin: 05/27/18 19:38 Dose: 3 ml Aspirin (Ecotrin) 81 mg PO DAILY [facility] Last Admin: 05/27/18 09:50 Dose: 81 mg Atenolol (Tenormin) 50 mg PO DAILY [facility] Last Admin: 05/27/18 09:54 Dose: 50 mg Azithromycin (Zithromax) 500 mg PO DAILY [facility] Last Admin: 05/27/18 09:54 Dose: 500 mg Benzocaine/Menthol (Cepacol Sore Throat) 1 heather MT Q4H PRN PRN Reason: Sore Throat Last Admin: 05/26/18 09:57 Dose: 1 heather Budesonide (Pulmicort Respules) 0.25 mg IH [id number] [facility] Last Admin: 05/27/18 19:41 Dose: 0.25 mg Cefpodoxime Proxetil (Vantin) 200 mg PO Q12 [facility] Stop: 05/29/18 10:59 Last Admin: 05/27/18 09:57 Dose: 200 mg Enoxaparin Sodium (Lovenox) 30 mg SC DAILY [facility]; Protocol Last Admin: 05/27/18 09:53 Dose: 30 mg Famotidine (Pepcid) 20 mg PO [facility] Last Admin: 05/26/18 21:36 Dose: 20 mg Loratadine (Claritin) 10 mg PO DAILY [facility] Last Admin: 05/27/18 09:54 Dose: 10 mg Methylprednisolone (Solu-Medrol) 40 mg IVP Q12 [facility] Last Admin: 05/27/18 09:53 Dose: 40 mg Montelukast Sodium (Singulair) 10 mg PO HS [facility] Last Admin: 05/26/18 21:35 Dose: 10 mg Nicotine (Nicoderm Cq) 1 patch TD DAILY [facility] Last Admin: 05/27/18 09:51 Dose: 1 patch Ondansetron HCl (Zofran Inj) 4 mg IVP Q6 PRN PRN Reason: Nausea/Vomiting Promethazine HCl (Phenergan Syrup) 6.25 mg PO TID PRN PRN Reason: Cough Last Admin: 05/27/18 17:49 Dose: 6.25 mg Results - Vital Signs Recent Vital Signs: Last Vital Signs Temp 98 F 05/27/18 22:43 Pulse 70 05/27/18 22:43 Resp 18 05/27/18 22:43 BP 134/81 05/27/18 22:43 Pulse Ox 97 05/27/18 22:43 - Labs Result Diagrams: 05/25/18 06:00 05/25/18 06:00 Labs: Laboratory Results - last 24 hr 05/27/18 02:35 Urine Color Yellow Urine Appearance Clear Urine pH 7.0 Ur Specific [place] <= 1.005 Urine Protein Negative Urine Glucose (UA) Negative Urine Ketones Negative Urine Blood Negative Urine Nitrate Negative Urine Bilirubin Negative Urine Urobilinogen 0.2 Ur Leukocyte Esterase Negative Attending/Attestation - Attestation I have personally seen and examined this patient.: Yes I have fully participated in the care of the patient.: Yes I have reviewed all pertinent clinical information: Yes Notes (Text): This is an addendum to GI consult report dictated by the GI Fellow.The patient was seen and examined earlier. Medical records, lab studies, imagings were reviewed. Last 24 hours events reviewed. Agreed with the above treatment plan as outlined in GI Fellow 's notes with the addition of the following 05/27/18 23:12
[2018-05-26] MEDS: Acetylcysteine 20% Inhal Soln (4ml) IH SCH (20:10)
[2018-05-26] MEDS: Budesonide 0.25 mg/2 ml Inhal Susp UD IH SCH (20:10)
[2018-05-27] MEDS: Albuterol-Ipratrop 3 mg / 0.5 (3 ml) UD IH SCH ×4 (03:00→19:38)
[2018-05-27 03:01] LABS: URINE BILIRUBIN NEGATIVE (NEGATIVE); URINE BLOOD NEGATIVE (NEGATIVE); URINE GLUCOSE (UA) NEGATIVE (NEGATIVE); URINE LEUKOCYTE ESTERASE NEGATIVE Leu/uL (NEGATIVE); URINE PROTEIN NEGATIVE mg/dL (<30 mg/dL); URINE UROBILINOGEN 0.2 E.U./dL (<1 E.U./dL)
[2018-05-27 03:03] LABS: URINE APPEARANCE CLEAR (CLEAR); URINE COLOR YELLOW (YELLOW)
[2018-05-27] MEDS: Budesonide 0.25 mg/2 ml Inhal Susp UD IH SCH ×3 (08:56→19:41)
[2018-05-27] MEDS: Acetylcysteine 20% Inhal Soln (4ml) IH SCH ×2 (08:56→19:41)
[2018-05-27] MEDS: MethylPREDNISolone 40 mg Vial IVP SCH ×2 (09:53→23:12)
[2018-05-27] MEDS: Enoxaparin 30 mg Syringe SC SCH (09:53)
[2018-05-27] MEDS: Promethazine 6.25 MG/5 ML CUP PO PRN ×2 (09:57→17:49)
[2018-05-27] MEDS: Cefpodoxime (Vantin) 200 mg Tab PO SCH ×2 (09:57→23:11)
--- NOTE | 2018-05-27 13:02 | PN ---
DATE: 05/27/2018 PULMONARY PROGRESS NOTE REFERRING PHYSICIAN: Dr. Hubbard. SUBJECTIVE: The patient is sitting up in bed. No acute distress. Denies shortness of breath. Reports still having cough, which is productive at this time. No headache, rhinitis, chest pain, abdominal pain, nausea, vomiting or diarrhea reported. OBJECTIVE: GENERAL: No acute distress. VITAL SIGNS: Blood pressure 153/83, pulse 69, temperature 97.9, oxygen saturation 98%. HEENT: Moist mucous membranes. Mallampati score of 4. Crowded airway. NECK: Supple. No JVD. LUNGS: Fair air flow bilaterally. CARDIOVASCULAR: S1 and S2. ABDOMEN: Soft and nontender. No distention. Colostomy with protrusion with liquid stool. EXTREMITIES: Bilateral stumps looking okay. NEUROLOGIC: Awake, alert, and verbal. Follows commands. MEDICATIONS: Reviewed. Tylenol 650 mg every 4 hours p.r.n. for fever or pain, Mucomyst 4 mL inhalation twice a day, DuoNeb 3 mL inhalation every 6 hours, aspirin 81 mg daily, atenolol 50 mg daily, Zithromax 500 mg daily, Cepacol throat lozenges every 4 hours p.r.n., Pulmicort 0.25 mg inhalation every 12 hours, Vantin 200 mg every 12 hours, Lovenox 30 mg subcutaneously daily, Pepcid 20 mg at bedtime, Claritin 10 mg daily, Solu-Medrol 40 mg every 12 hours, Singulair 10 mg at bedtime, nicotine patch transdermally daily, Zofran 4 mg IV push every 6 hours p.r.n, Phenergan 6.25 mg 3 times a day p.r.n. LABORATORY DATA: Reviewed. Procalcitonin less than 0.05. Urinalysis clear. Blood cultures preliminary no growth after 48 hours. IMPRESSION AND PLAN: Chronic obstructive lung disease exacerbation, active smoker, hypertension, peripheral vascular disease, history of above-knee amputation bilaterally. From pulmonary point of view, continue intravenous and inhaled bronchodilators, antibiotic therapy, gastric prophylaxis. Continue to encourage smoking cessation. Continue Nicoderm patch transdermally. The patient is currently on isolation precautions for bedbugs. This patient was seen and examined with Dr. Singh. Discussed assessment and plan as described above. This patient was seen and examined by Juan F Mondragon, nurse practitioner. Discussed assessment and plan as described above. Thank you for this consult and we will follow with you. Juan F Mondragon APN Donn Singh MD MTDJose A
--- NOTE | 2018-05-27 13:30 | CP.PCM.APN ---
Subjective - Date & Time of Evaluation Date of Evaluation: 05/27/18 Time of Evaluation: 10:15 - Subjective Subjective: Pt seen and examined at bedside. Still c/o shortness of breath but slightly better. Denies chest pain. Objective - Vital Signs/Intake and Output Vital Signs (last 24 hours): Temp Pulse Resp BP Pulse Ox 97.9 F 70 18 153/83 H 98 05/27/18 06:00 05/27/18 09:54 05/27/18 06:00 05/27/18 09:54 05/27/18 06:00 Intake and Output: 05/27/18 05/27/18 06:59 18:59 Intake Total 540 Output Total 350 Balance 190 - Medications Medications: Current Medications Acetaminophen (Tylenol 325mg Tab) 650 mg PO Q4H PRN PRN Reason: pain fever Acetylcysteine (Acetylcysteine 20%) 4 ml IH BIDRESP [facility] Last Admin: 05/27/18 08:56 Dose: 4 ml Albuterol/Ipratropium (Duoneb 3 Mg/0.5 Mg (3 Ml) Ud) 3 ml IH [id number] [facility] Last Admin: 05/27/18 08:56 Dose: 3 ml Aspirin (Ecotrin) 81 mg PO DAILY [facility] Last Admin: 05/27/18 09:50 Dose: 81 mg Atenolol (Tenormin) 50 mg PO DAILY [facility] Last Admin: 05/27/18 09:54 Dose: 50 mg Azithromycin (Zithromax) 500 mg PO DAILY [facility] Last Admin: 05/27/18 09:54 Dose: 500 mg Benzocaine/Menthol (Cepacol Sore Throat) 1 heather MT Q4H PRN PRN Reason: Sore Throat Last Admin: 05/26/18 09:57 Dose: 1 heather Budesonide (Pulmicort Respules) 0.25 mg IH [id number] [facility] Last Admin: 05/27/18 08:56 Dose: 0.25 mg Cefpodoxime Proxetil (Vantin) 200 mg PO Q12 [facility] Stop: 05/29/18 10:59 Last Admin: 05/27/18 09:57 Dose: 200 mg Enoxaparin Sodium (Lovenox) 30 mg SC DAILY [facility]; Protocol Last Admin: 05/27/18 09:53 Dose: 30 mg Famotidine (Pepcid) 20 mg PO HS [facility] Last Admin: 05/26/18 21:36 Dose: 20 mg Loratadine (Claritin) 10 mg PO DAILY [facility] Last Admin: 05/27/18 09:54 Dose: 10 mg Methylprednisolone (Solu-Medrol) 40 mg IVP Q12 [facility] Last Admin: 05/27/18 09:53 Dose: 40 mg Montelukast Sodium (Singulair) 10 mg PO HS [facility] Last Admin: 05/26/18 21:35 Dose: 10 mg Nicotine (Nicoderm Cq) 1 patch TD DAILY [facility] Last Admin: 05/27/18 09:51 Dose: 1 patch Ondansetron HCl (Zofran Inj) 4 mg IVP Q6 PRN PRN Reason: Nausea/Vomiting Promethazine HCl (Phenergan Syrup) 6.25 mg PO TID PRN PRN Reason: Cough Last Admin: 05/27/18 09:57 Dose: 6.25 mg - Labs Labs: 05/25/18 06:00 05/25/18 06:00 - Constitutional Appears: No Acute Distress - Respiratory Exam Respiratory Exam: Wheezes - Cardiovascular Exam Cardiovascular Exam: REGULAR RHYTHM, +S1, +S2 - GI/Abdominal Exam GI & Abdominal Exam: Soft, Normal Bowel Sounds Additional comments: +colostomy - Rectal Exam Rectal Exam: Deferred - Extremities Exam Additional comments: eugene aka - Neurological Exam Neurological Exam: Alert, Awake, Oriented x3 Assessment and Plan - Assessment and Plan (Free Text) Assessment: Pt is a 78 y.o. male with pmhx of COPD, bilateral AKA who presented in ED due to shortness of breath. ITS Impressions Chest X-Ray 05/24/18 14:02 IMPRESSION: Chronic changes of COPD. Suspect chronic pleural thickening both CP angles. Minimal linear scarring both lung bases Plan: Solumedrol 40q12 Meds per MAR Pulm on consult Will continue to follow
[2018-05-27] MEDS: Benzocaine/Menthol (Cepacol) Lozenge MT PRN (23:12)
[2018-05-28] MEDS: Albuterol-Ipratrop 3 mg / 0.5 (3 ml) UD IH SCH ×5 (01:19→21:44)
--- NOTE | 2018-05-28 02:21 | PN ---
DATE: 05/27/2018 SUBJECTIVE: The patient is a 78-year-old male. The patient was seen and examined at the bedside on 05/27/2018. The patient is on the wheelchair, not in acute distress. Still coughing and shortness of breath but improving. No headache. No rhinitis. No chest pain. No abdominal pain. No nausea, vomiting, or diarrhea. PHYSICAL EXAMINATION: VITAL SIGNS: Blood pressure 150/80, pulse 69, temperature 97.9, oxygen saturation 98%. HEENT: Head: Normocephalic, atraumatic. Eyes: PERRLA. Extraocular muscles are intact. Conjunctivae clear. Nose patent. Mucous membranes moist. NECK: Supple. No carotid bruits. No JVD or thyromegaly. CHEST: Bilaterally symmetrical. HEART: S1 and S2 positive. LUNGS: Fair airflow bilaterally. ABDOMEN: Soft. Nontender. Nondistended. Colostomy bag filled with air with a leakage of stool. EXTREMITIES: Bilateral stumps looking okay. NEUROLOGIC: Awake and alert. Follows simple commands. MEDICATIONS: Tylenol, Mucomyst, DuoNeb, aspirin, atenolol, Zithromax, Vantin, Lovenox, Pepcid, Claritin, Solu-Medrol, Singulair, nicotine patch, Zofran, and Phenergan. LABORATORY DATA: We do not have recent labs today, but I reviewed old labs. ASSESSMENT AND PLAN: Mr. Ousmane Engel is a 78-year-old male with chronic obstructive lung disease, active smoker, hypertension, peripheral vascular disease, history of [id number]-cham amputation bilaterally. Continue intravenous inhaled bronchodilators, antibiotics. Gastric prophylaxis. Plant Chief is on the case. Surgery is on the case for protrusion of colostomy. Continue nicotine patch transdermally. The patient is still on isolation precautions for bedbugs. Repeat labs. We will follow up. Trish Hubbard MD
[2018-05-28] MEDS: Acetylcysteine 20% Inhal Soln (4ml) IH SCH ×4 (08:04→23:46)
[2018-05-28] MEDS: Budesonide 0.25 mg/2 ml Inhal Susp UD IH SCH ×3 (08:04→21:44)
[2018-05-28] MEDS: Promethazine 6.25 MG/5 ML CUP PO PRN ×2 (10:46→18:16)
[2018-05-28] MEDS: Enoxaparin 30 mg Syringe SC SCH (10:48)
[2018-05-28] MEDS: MethylPREDNISolone 40 mg Vial IVP SCH ×2 (10:48→21:41)
[2018-05-28] MEDS: Cefpodoxime (Vantin) 200 mg Tab PO SCH ×2 (10:50→21:42)
--- NOTE | 2018-05-28 16:44 | PN ---
DATE: 05/28/2018 PULMONARY PROGRESS NOTE REFERRING PHYSICIAN: Trish Hubbard MD. SUBJECTIVE: The patient is sitting up in bed. No acute distress. Reports still having cough. Reports still feeling congested. No shortness of breath. No headaches, rhinitis, chest pain, abdominal pain, nausea, vomiting and diarrhea reported. OBJECTIVE: GENERAL: No acute distress. VITAL SIGNS: Blood pressure 128/81, pulse 62, temperature 98.4 and oxygen saturation 96% on room air. HEENT: Moist mucous membranes. Crowded airway. Mallampati score 4. NECK: Supple. No JVD. LUNGS: Few rhonchi. Few wheezing bilaterally. CARDIOVASCULAR: S1 and S2. ABDOMEN: Soft and nontender. No distention. No organomegaly. EXTREMITIES: Bilateral stumps. Looking okay. NEUROLOGIC: Awake, alert and verbal. Follows commands. MEDICATIONS: Reviewed. Tylenol 650 every 4 hours p.r.n., Mucomyst 4 mL inhalation twice a day, DuoNeb 3 mL inhalation every 6 hours, aspirin 81 mg daily, atenolol 50 mg daily, Zithromax 500 mg daily, Cepacol throat lozenges every 4 hours p.r.n., Pulmicort 0.25 mg every 12 hours, Vantin 200 mg every 12 hours, Lovenox 30 mg subcutaneous daily, Pepcid 20 mg at bedtime, Claritin 10 mg p.o. daily, Solu-Medrol 40 mg every 12 hours, Singulair 10 mg at bedtime, nicotine patch transdermal daily, Zofran 4 mg every 6 hours p.r.n, Phenergan 6.25 mg 3 times a day p.r.n., LABORATORY DATA: Blood cultures preliminary, no growth after 3 days. IMPRESSION AND PLAN: Chronic obstructive lung disease, exacerbation; active smoker; hypertension; peripheral vascular disease; history of above-knee amputation bilaterally. Pulmonary point of view, continue intravenous and inhaled bronchodilators. We will continue steroids at current dosage at this time and reassess tomorrow. Continue antibiotic therapy, gastric prophylaxis and deep venous thrombosis prophylaxis. Continue nicotine patch transdermally for smoking cessation. This patient was seen and examined with Dr. Singh. Discussed assessment and plan as described above. This patient was seen and examined by Juan F Mondragon, nurse practitioner. Discussed assessment and plan as described above. Thank you for this consult. We will follow with you. Juan F Mondragon APN Donn Singh MD
--- NOTE | 2018-05-28 19:59 | PN ---
DATE: 05/28/2018 SUBJECTIVE: The patient was seen and examined at the bedside 05/28/2018, sitting on his wheelchair, still coughing and shortness of breath , congested. No fever. No chills. No hematuria. No hematochezia. No headache. No dizziness. No chest pain. No palpitations. PHYSICAL EXAMINATION: VITAL SIGNS: Temperature 98.4, pulse 62, blood pressure 128/82, pulse oximetry 96%, respiratory rate 18. HEENT: Head is normocephalic, atraumatic. Eyes; PERRLA. Extraocular muscles intact. Conjunctivae clear. Nose patent. Mucous membrane moist. NECK: Supple. No carotid bruits. No JVD. No thyromegaly. CHEST: Bilateral symmetrical. HEART: S1, S2 positive. LUNGS: Clear to auscultation. ABDOMEN: Soft. Bowel sounds present. No organomegaly. EXTREMITIES: No edema. No cyanosis. NEUROLOGIC: The patient is awake, alert, moving all four extremities. No focal deficits. MEDICATIONS: Acetylcysteine, Cepacol lozenges, Claritin, DuoNeb, Ecotrin, Lovenox, Nicoderm, Pepcid, Phenergan, Pulmicort, Singulair, Solu-Medrol, Tenormin, Tylenol, Vantin, Zithromax, Zofran. LABORATORY DATA: White blood cell 13.0, hemoglobin 14.0, hematocrit 41.1, platelets 283. We do not have recent lab, but I reviewed old labs. ASSESSMENT AND PLAN: Mr. Ousmane Engel is a 78-year-old male with leukocytosis, hyperglycemia, has chronic obstructive pulmonary disease came with exacerbation of chronic obstructive pulmonary disease suspect, chronic pleural thickening both costophrenic angles, minimal linear scarring of both angles, bilateral [id number] amputation, active smoker, hypertension, peripheral vascular disease, get inhaled bronchodilators, antibiotics. Gastric and deep venous thrombosis prophylaxis provided. Encourage to quit smoking. Nicotine patch given transdermally. The patient on isolation precautions for bedbugs, wants to go home, but still coughing. Business Process Coordinator on the case. Discussion done with the patient's nurse. The patient looks like depressed, call psych consult. We will followup. Trish Hubbard MD [facility] # [id number]
--- NOTE | 2018-05-29 00:55 | PN ---
DATE: 05/26/2018 SUBJECTIVE: The patient is a 78-year-old male. The patient was seen and examined at the bedside on 05/26/2018. Looking comfortable. Still coughing, sometimes with shortness of breath, congested. No headache. No dizziness. No chest pain. No palpitation. PHYSICAL EXAMINATION: VITAL SIGNS: Blood pressure 130/50, pulse 90, oxygen saturation is 100% on a nasal canula. HEENT: Head is normocephalic and atraumatic. Nose patent. NECK: Supple. No carotid bruit. No JVD or thyromegaly. CHEST: Bilaterally symmetrical. HEART: S1 and S2 positive. LUNGS: Clear to auscultation. ABDOMEN: Soft. Bowel sounds present. No organomegaly. EXTREMITIES: No edema. No cyanosis. NEUROLOGIC: The patient is awake, alert. Moving all four extremities. No focal deficits. MEDICATIONS: Tylenol, Mucomyst, DuoNeb, Zithromax, Cepacol lozenges, Pulmicort, Rocephin, Pepcid, Claritin, Solu-Medrol, and nicotine patch. LABORATORY DATA: We do not have recent labs today, but I reviewed the old labs. ASSESSMENT AND PLAN: Mr. Ousmane Engel is a 78-year-old male with deafness, chronic obstructive lung disease, active smoker, hypertension, peripheral vascular disease, history of above-knee amputation bilaterally, using electronic scooter. Continue intravenous and inhaled bronchodilators. Gastric prophylaxis. The patient is using NicoDerm patch, urges to quit smoking. Repeat labs. Dr. Singh is on the case. We will follow up. Trish Hubbard MD
[2018-05-29] MEDS: Albuterol-Ipratrop 3 mg / 0.5 (3 ml) UD IH SCH ×4 (01:32→13:13)
[2018-05-29] MEDS: Acetylcysteine 20% Inhal Soln (4ml) IH SCH (07:32)
[2018-05-29] MEDS: Budesonide 0.25 mg/2 ml Inhal Susp UD IH SCH (07:32)
[2018-05-29] MEDS: Promethazine 6.25 MG/5 ML CUP PO PRN (08:47)
[2018-05-29 08:56] VITALS: BP 124/68; PULSE 82; TEMP 97.7; O2SAT 96
[2018-05-29] MEDS: Cefpodoxime (Vantin) 200 mg Tab PO SCH (10:08)
[2018-05-29] MEDS: Enoxaparin 30 mg Syringe SC SCH (10:09)
[2018-05-29] MEDS: MethylPREDNISolone 40 mg Vial IVP SCH (10:09)
--- NOTE | 2018-05-29 13:40 | PN ---
DATE: 05/29/2018 PULMONARY PROGRESS NOTE REFERRING PHYSICIAN: Dr. Trish Hubbard. SUBJECTIVE: The patient is lying in bed. No acute distress. No overnight events reported. Denies any shortness of breath. Still has occasional cough with congestion. No headache, rhinitis, chest pain. abdominal pain, nausea, vomiting, or diarrhea reported. OBJECTIVE: GENERAL: No acute distress. VITAL SIGNS: Blood pressure 124/68, pulse 82, temperature 97.7, and oxygen saturation 96% on room air. HEENT: Moist mucous membranes. Crowded airway. Mallampati score of 4. NECK: Supple. No JVD. LUNGS: Few rhonchi bilaterally. CARDIOVASCULAR: S1 and S2. ABDOMEN: Soft and nontender. No distention. No organomegaly. EXTREMITIES: Bilateral stumps skin intact. NEUROLOGIC: Awake, alert, and verbal. Follows commands. MEDICATIONS: Reviewed. Tylenol 650 every 4 hours p.r.n., Mucomyst 4 mL inhalation twice a day, DuoNeb 3 mL inhalation every 6 hours, aspirin 81 mg daily, atenolol 50 mg daily, Zithromax 500 mg daily, Cepacol throat lozenges every 4 hours p.r.n., Pulmicort 0.25 mg inhalation every 12 hours, Lovenox 30 mg subcutaneous daily, Pepcid 20 mg at bedtime, Claritin 10 mg daily, Solu-Medrol 40 mg every 12 hours, Singulair 10 mg at bedtime, nicotine patch transdermally daily, Zofran 4 mg every 6 hours p.r.n, and Phenergan 6.25 mg three times a day p.r.n. LABORATORY DATA: Reviewed. Blood cultures preliminary, no growth after four days. IMPRESSION AND PLAN: Chronic obstructive lung disease exacerbation; active smoker; hypertension; peripheral vascular disease and history of above-knee amputation bilaterally. Pulmonary point of view, we will discontinue Solu-Medrol and start the patient on prednisone 40 mg tapering over 6 to 7 days. The patient should complete three more days of Zithromax antibiotic. Gastric prophylaxis, deep venous thrombosis prophylaxis, smoking cessation; continue nicotine patch transdermally. This patient was seen and examined with Dr. Singh. Discussed assessment and plan as described above. This patient was seen and examined with Juan F Mondragon, nurse practitioner. Discussed assessment and plan as described above. Thank you for this consult. We will follow with you. Juan F Mondragon APN Donn Singh MD
== END 2018-05-29 17:01 | disposition home or self-care (01) | DRG 192 ==
LOC: ED 13:28 → ERH 16:38 → 5RNO 05-26 12:34
PROVIDERS: ADMIT Internal Medicine; ATTEND Internal Medicine
PROC: 3E0F7GC Introduction of Other Therapeutic Substance into Respiratory Tract, Via Natural or Artificial Opening (ICD-10-PCS; principal; 2018-05-26)
DX: J43.9 Emphysema, unspecified (principal); K43.5 Parastomal hernia without obstruction or gangrene; I73.9 Peripheral vascular disease, unspecified; I11.0 Hypertensive heart disease with heart failure; I50.9 Heart failure, unspecified; F17.210 Nicotine dependence, cigarettes, uncomplicated; H91.90 Unspecified hearing loss, unspecified ear; K40.90 Unilateral inguinal hernia, without obstruction or gangrene, not specified as recurrent; Z91.19 Patient's noncompliance with other medical treatment and regimen; Z87.440 Personal history of urinary (tract) infections; Z89.611 Acquired absence of right leg above knee; Z89.612 Acquired absence of left leg above knee